=== PATIENT | male | born 1935 | race Caucasian/White ===

== ENCOUNTER 2017-02-02 14:35 | Emergency (ER) | payer OTHER, MEDICARE ==
[~2017-02-02] VITALS: Ht 182.9 cm; Wt 127.0 kg
[~2017-02-02 14:35] MED LIST: ACTOS 45 MG45 M1; ASPIRIN325 PO; CENTRUM SILVER1 EAC4 PO; COLACE100 MG PO; CORDARONE200 MG PO; COREG3.125 MG PO; CORLANOR5 MG PO; FLOMAX0.4 MG PO; GLUCOPHAGE500 MG PO; GLUCOTROL10 MG PO; JANUMET 50-5001 EACH PO; K-DUR 20 MEQ T20 MEQ PO; KEFLEX250 MG PO; LEVAQUIN 500 M500 M2 PO; LEVEMIR SUBQ; LISINOPRIL2.5 MG PO; LISINOPRIL20 MG PO; MIRALAX255 GM PO; NORCO 5-325 TA1 EACH PO; NOVOLOG100 UNIT/1 SUBQ; PLAVIX 75 MG TA75 M1 PO; SPIRONOLACTONE25 MG PO; TORSEMIDE20 MG PO; VITAMIN D1000 UNI1 PO; ZOCOR40 MG PO; ZOFRAN4 MG PO
== END 2017-02-02 19:16 | disposition home or self-care (01) ==
LOC: ER 14:35
DX: S01.01XA Laceration without foreign body of scalp, initial encounter (principal); Y99.8 Other external cause status; E11.9 Type 2 diabetes mellitus without complications; I10 Essential (primary) hypertension; I25.2 Old myocardial infarction; I48.91 Unspecified atrial fibrillation; S51.011A Laceration without foreign body of right elbow, initial encounter; W18.39XA Other fall on same level, initial encounter; Y93.89 Activity, other specified; Y92.59 Other trade areas as the place of occurrence of the external cause

== ENCOUNTER → 2017-12-30 | Outpatient (CLI) | payer OTHER, MEDICARE ==
[~2017-12-30] VITALS: Ht 152.4 cm; Wt 124.9 kg
[~2017-12-30] MED LIST changes: +COREG25 MG PO
--- NOTE | ~2017-12-30 | HPC ---
[facility] [place] [address] PAIN MANAGEMENT CONSULTATION Name: Demetrice CONTRERAS JR Room #: REG [facility]#: [id number] Admission: 12/30/17 Attend Phys: Seun Bautista DO Discharge: Date of : 33 Report #: [id number] THIS REPORT FOR: //name// CC: Matthias Bautista DATE OF SERVICE: 12/30/2017 HISTORY OF PRESENT ILLNESS: The patient is a pleasant 82-year-old gentleman, actually seen 9 years ago by myself for lumbar radicular symptoms, did well with epidural injection, was lost to follow up. He returns to [facility] Today having been referred by Dr. Link Cabrera for assistance with management of right knee pain. Dr. Cabrera has done what sounds like steroid injections in the right knee with nominal efficacy. The patient notes he has had chronic right knee pain since at least the year 1999. States pain is exacerbated with weightbearing. He started using a walker the past few weeks (he prior used a cane) notes that this helps a little by "taking some weight off the knee." He still rates his pain an 8 on a VAS. He notes the pain is aching, throbbing and periodic, again exacerbated with walking and weightbearing, relieved when he is stationary. REVIEW OF SYSTEMS: Complete review of systems is attached to chart and gone over with the patient. He is , does not smoke or drink alcohol to excess. History of insulin-dependent diabetes, unsure of his hemoglobin A1c, but notes his blood sugars run in the 100-130 range. Spironolactone and carvedilol for hypertension. Coronary artery disease, status post endovascular stents, the last one being in 2013. He does have a pacemaker defibrillator implanted. He is currently on torsemide, amlodipine and Plavix. Benign prostatic hypertrophy treated with tamsulosin. He has been retired for 15+ years. Pain impact score is 42/70. The patient recently relocated from his lifetime home to a [facility] facility. Sadly he had to get rid of his 6-year-old [place] dog, which was his constant registered nurses. PHYSICAL EXAMINATION: Reveals a 6 feet tall, 270-pound gentleman, BMI is quite elevated at 53.8 kg/m2. Significant osteoarthritis in hands and knees, right knee most problematic. Blood pressure 109/53, pulse 63, respirations are 22. Subjective pain score is 8 on a VAS. Cranial nerves 2-12 are grossly intact. Pupils equal and react to light and accommodation. Extraocular muscles are intact. Does have a little lateral gaze. No nystagmus. Thyroid is unremarkable. Upper extremity strength is preserved. Heart is regular rhythmical without murmur. Lungs: Clear to auscultation. Abdomen shows a [facility] [address] [place] [address] PAIN MANAGEMENT CONSULTATION Name: Demetrice CONTRERAS JR [id number] Admission: 12/30/17 Attend Phys: Seun Bautista DO Discharge: Date of : 33 Report #: [id number] markedly endomorphic build. Rises from chair using armrest, modestly antalgic gait. Inspection of the right knee shows medial and lateral collateral as well as the anterior and posterior cruciate ligaments are intact. There is no appreciable ballotable edema at this time, though patient notes his knee does swell often. Skin: Integument is generally intact. DIAGNOSTIC STUDIES: There are no recent diagnostic studies available for evaluation at this time. ASSESSMENT: Degenerative joint disease, right knee (osteoarthritis with multiple osteoarthritic complaints including hands, shoulders, and hips. Comorbidity includes insulin-dependent diabetes, coronary artery disease, congestive failure and ejection fraction in the mid 30s. RECOMMENDATION: Long discussion with patient today about therapeutic options. It sounds like he has had steroid injections, but has not had synthetic disk (hylan G-F 20) injection. We will trial at least 2 Synvisc injections the right knee. If this does not afford adequate relief, we will move forward with genicular nerve blocks (superior medial and lateral and inferior medial) x 3. If this affords transient relief, I can consider moving forward with radiofrequency neurolysis of same. Typically, this will provide anywhere from 5-15 months relief. Thank you for allowing me to participate in the patient's care. We will plan on moving forward with Synvisc injection next week. 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 <ELECTRONICALLY SIGNED> By: Seun Bautista DO 01/03/18 0715 1240 0101 Seun Bautista DO /nt
[2017-12-30 11:01] VITALS: BP 109/53
== END ==
LOC: PAIN 12-17 14:18 → EDBD 06:50 → PAIN 10:53
DX: M17.11 Unilateral primary osteoarthritis, right knee (principal); M71.461 Calcium deposit in bursa, right knee; M19.042 Primary osteoarthritis, left hand; M19.041 Primary osteoarthritis, right hand; M19.012 Primary osteoarthritis, left shoulder; M19.011 Primary osteoarthritis, right shoulder; M16.0 Bilateral primary osteoarthritis of hip; E11.9 Type 2 diabetes mellitus without complications; I25.10 Atherosclerotic heart disease of native coronary artery without angina pectoris; I50.9 Heart failure, unspecified

== ENCOUNTER → 2018-01-21 | Outpatient (CLI) | payer OTHER, MEDICARE ==
[~2018-01-21] VITALS: Ht 182.9 cm; Wt 126.3 kg
--- NOTE | ~2018-01-21 | HPC ---
[facility] [place] [address] PAIN MANAGEMENT CONSULTATION Name: Demetrice CONTRERAS JR Room #: REG [facility]#: [id number] Admission: 01/21/18 Attend Phys: Seun Bautista DO Discharge: Date of : 33 Report #: [id number] THIS REPORT FOR: //name// CC: Link Bautista DATE OF SERVICE: 01/21/2018 PROCEDURE: Right knee injection under fluoroscopy. Right knee Synvisc injection #1. INDICATION: Symptomatic DJD, right knee; osteoarthritis. Last seen in the pain clinic 12/30/2017. We sought authorization for this procedure. The patient presents to pain clinic today for right knee Synvisc injection #1. PROCEDURE NOTE: After written informed consent was obtained, the patient was taken to the fluoroscopy suite, placed in supine position with appropriate bolstering to the right knee. Wide surgical prep and drape was accomplished. Skin wheal with Xylocaine was raised. A 22-gauge stylet needle was placed from superior medial aspect in an inferior lateral trajectory under the patella. Negative aspiration was accomplished. AP and lateral projections showed good needle placement in the knee joint. Negative aspiration was accomplished. A 2 mL of hyaline G-F 20 (Synvisc) was injected. Needle was removed, area was cleansed, Band-Aids applied. The patient told to observe the area for infection and keep ice on it today. Follow up in next week for injection #2. <ELECTRONICALLY SIGNED> By: Seun Bautista DO 01/24/18 0747 1555 1753 Seun Bautista DO /nt
[2018-01-21 14:06] VITALS: BP 106/42
== END ==
LOC: PAIN 01-17 10:11
DX: M17.11 Unilateral primary osteoarthritis, right knee (principal)

== ENCOUNTER → 2018-01-28 | Outpatient (CLI) | payer OTHER, MEDICARE ==
[~2018-01-28] VITALS: Ht 182.9 cm; Wt 122.5 kg
--- NOTE | ~2018-01-28 | HPC ---
[facility] [place] [facility] [place] [address] PAIN MANAGEMENT CONSULTATION Name: Demetrice CONTRERAS JR Room #: REG [facility].#: [id number] Admission: 01/28/18 Attend Phys: Seun Bautista DO Discharge: Date of : 33 Report #: [id number] THIS REPORT FOR: //name// CC: Link Bautista PROCEDURE NOTE: Right knee joint injection under fluoroscopy. INDICATION: Symptomatic osteoarthritis, bilateral knees, right greater than left. This gentleman has had one Synvisc injection on 01/21/2018 in the right knee. Notes some incremental improvement in baseline pain. He wished to proceed with injection #2 today. ASSESSMENT: DJD, right knee. PROCEDURE: Right knee joint injection under fluoroscopy, Synvisc #2 (hyaline G-F 20). PROCEDURE NOTE: After written informed consent was obtained, the patient was taken to the fluoroscopy suite, placed in the supine position with a bolster under the knee. Wide surgical prep and drape was accomplished. Skin wheal with Xylocaine was raised. A 22-gauge stylet needle was placed from a superior medial entry point and placed in the inferior lateral trajectory under the patella. AP and lateral projections showed good needle placement. Negative aspiration was accomplished. A 2 mL of hyaline G-F 20 was injected. Needle was removed. The area was cleansed and Band-Aid was applied. The patient was told to watch the area for infection. Follow up in 2 weeks to repeat injection. This will be #3. If he does not get adequate relief, we can consider genicular nerve blocks. Fluoroscopy time was under 15 seconds. <ELECTRONICALLY SIGNED> By: Seun Bautista DO 01/31/18 0925 1521 00 Seun Bautista DO /nt
[2018-01-28 13:52] VITALS: BP 122/64
== END | disposition home or self-care (01) ==
LOC: PAIN 07:03
DX: M17.11 Unilateral primary osteoarthritis, right knee (principal); M17.12 Unilateral primary osteoarthritis, left knee

== ENCOUNTER → 2018-02-10 | Outpatient (CLI) | payer OTHER, MEDICARE ==
[~2018-02-10] VITALS: Ht 182.9 cm; Wt 122.8 kg
--- NOTE | ~2018-02-10 | HPC ---
[facility] [place] [address] PAIN MANAGEMENT CONSULTATION Name: Demetrice CONTRERAS JR Room #: REG [facility]#: [id number] Admission: 02/10/18 Attend Phys: Seun Bautista DO Discharge: Date of : 33 Report #: [id number] THIS REPORT FOR: //name// CC: Link Bautista PROCEDURE: Right knee joint injection under fluoroscopy. INDICATION: Symptomatic DJD, status post 2 Synvisc (hylan G-F 20) injection with some incremental improvement of baseline pain. The patient presents to pain clinic today, wishes to repeat injection. Notes pain is an 8-9 on a VAS. We did talk briefly today about followup in 4 weeks; if symptoms are not significantly improved, we can consider a genicular nerve block times 3 (superior medial, superior lateral, and inferior medial). ASSESSMENT: Degenerative joint disease, right knee. PROCEDURE: Right knee joint injection under fluoroscopy, Synvisc #3. PROCEDURE NOTE: After written informed consent was obtained, the patient was placed in the supine position with a bolster under the right knee after wide surgical prep and drape, skin wheal with Xylocaine was raised. A 22-gauge stylet needle was placed from superior medial entry point and then inferior lateral trajectory under the patella. AP and lateral projections showed good needle placement under the patella and within the joint. Negative aspiration, easily injected 2 mL of Synvisc into the knee, stylet was replaced, needle was removed, the area was cleansed, Band-Aids applied. The patient was told to observe the area for any signs of infection. Follow up in 4 weeks for reevaluation. <ELECTRONICALLY SIGNED> By: Seun Bautista DO 02/16/18 0744 1515 1626 Seun Batuista DO /nt
[2018-02-10 12:33] VITALS: BP 98/51
== END | disposition home or self-care (01) ==
LOC: PAIN 07:02
DX: M17.11 Unilateral primary osteoarthritis, right knee (principal)

== ENCOUNTER → 2018-03-07 | Outpatient (CLI) | payer OTHER, MEDICARE ==
[~2018-03-07] VITALS: Ht 182.9 cm; Wt 123.4 kg
--- NOTE | ~2018-03-07 | HPC ---
[facility] [place] [address] PAIN MANAGEMENT CONSULTATION Name: Demetrice CONTRERAS JR Room #: REG [facility]#: [id number] Admission: 03/07/18 Attend Phys: Seun Bautista DO Discharge: Date of : 33 Report #: [id number] THIS REPORT FOR: //name// CC: Link Bautista The patient is a very pleasant 83-year-old gentleman, being treated for osteoarthritis, bilateral knees, right greater than left. Multiple comorbidities including non-insulin dependent diabetes, coronary artery disease. We did a series of 3 Synvisc injections with only nominal efficacy. Notes pain in his knee is better in the morning, but still has pain that interferes with function. He is not a surgical candidate, has significant osteoarthritis in the right knee. I told him that if the Synvisc injections did not afford adequate relief, we will consider genicular nerve block. Today, we will do the diagnostic genicular nerve block. If this affords good relief, we will move forward with plans for RFL of same. ASSESSMENT: Symptomatic osteoarthritis, right knee; chronic pain, right knee. PROCEDURE: Genicular nerve block with fluoroscopy right side, 3 nerves (superior medial genicular, superior lateral genicular, inferior medial genicular). DESCRIPTION OF PROCEDURE: After informed consent was obtained, the patient was taken to fluoroscopy suite, placed in supine position. Skin overlying the knee was cleansed with ChloraPrep. Skin wheal with Xylocaine was raised. Three 22-gauge stylet needles were placed to contact the metaphysis of the distal femur, left and right and the metaphysis of the proximal tibia medial aspect. AP and lateral projections showed good needle placement at mid shaft. A 1 mL of a 50:50 mix of 0.5% preservative-free bupivacaine with 1.5% preservative-free Xylocaine with 1:200,000 epi was injected. All three needles removed. The patient was allowed to ambulate to recovery room. Fluoroscopy time was 10 seconds. The patient was monitored for an appropriate period of time, discharged in good and stable condition. Please do note the patient was pain free, pain was absent on discharge. He had been scoring his pain a 3-4 on admission. We will plan on moving forward with radiofrequency neurolysis of the genicular nerves x 3, right knee at next visit. <ELECTRONICALLY SIGNED> By: Seun Bautista DO 03/09/18 0753 1137 1818 eSun Bautista DO /nt
[2018-03-07 09:39] VITALS: BP 110/67
== END | disposition home or self-care (01) ==
LOC: PAIN 07:14
DX: M17.11 Unilateral primary osteoarthritis, right knee (principal); G89.29 Other chronic pain; E11.9 Type 2 diabetes mellitus without complications; I25.10 Atherosclerotic heart disease of native coronary artery without angina pectoris

== ENCOUNTER → 2018-03-21 | Outpatient (CLI) | payer OTHER, MEDICARE ==
[~2018-03-21] VITALS: Ht 182.9 cm; Wt 123.7 kg
--- NOTE | ~2018-03-21 | HPC ---
[facility] [place] [address] PAIN MANAGEMENT CONSULTATION Name: Demetrice CONTRERAS JR Room #: REG [facility]#: [id number] Admission: 03/21/18 Attend Phys: Seun Bautista DO Discharge: Date of : 33 Report #: [id number] THIS REPORT FOR: //name// CC: Link Bautista The patient is a pleasant 83-year-old gentleman, being treated for significant osteoarthritis, bilateral knees, right greater than left; history of coronary artery disease and chronic pain syndrome, requiring complex medication management. Last visit, we had progressed to do a right knee genicular nerve block (superior lateral, inferior medial and superior medial genicular nerve). The patient noted dramatic improvement of baseline pain, in fact noted pain was absent on discharge. He returns to pain clinic today, the patient noted pain improvement lasted several hours. We elected to proceed with genicular nerve block neurolysis today. The patient understands risks that include lack of efficacy and increased pain. The patient has prior failed Synvisc injection. He is not a surgical candidate for total knee arthroplasty due to significant comorbidity. PHYSICAL EXAMINATION: Unchanged, 83-year-old gentleman, BMI is elevated at 37 kg/m2. Blood pressure 117/64, pulse wnl, respirations are 16. He has diffuse lower extremity edema. Antalgic gait. Tender in the right knee. No ballotable edema. ASSESSMENT: Osteoarthritis, right knee. PROCEDURE: Radiofrequency neurolysis genicular nerve, superior medial genicular nerve, superior lateral genicular nerve, and inferior medial genicular nerve with fluoroscopy. PROCEDURE NOTE: After written informed consent was obtained, the patient was taken to the fluoroscopy suite and placed in supine position with a bolster under the right knee. After appropriate wide surgical prep and drape, skin wheals with Xylocaine were raised. Three 10 mm RF cannula were placed to contact the distal diaphysis of the femur both medial and lateral and proximal diaphysis of the tibia medial aspect. AP and lateral projections showed good needle placements at mid shaft. Initial impedance and sensory testing was accomplished. 1 mL of 1% preservative-free Xylocaine was injected through each needle. All three needles were heated to 80 degrees centigrade for 90 seconds. A total of 13 mg of triamcinolone plus 1 mL of 0.5% preservative-free bupivacaine injected through each needle. All three needles were removed, the area was cleansed, and Band-Aid applied. The patient was monitored for an appropriate period of time, discharged in good and stable condition, noting incremental improvement of baseline pain, in fact noting his knee felt "numb." [address] [address] PAIN MANAGEMENT CONSULTATION Name: Demetrice CONTRERAS JR Room #: REG [facility] [place]#: [id number] Admission: 03/21/18 Attend Phys: Seun Bautista DO Discharge: Date of : 33 Report #: [id number] Fluoroscopy time was 12 seconds. The patient was instructed not to follow up with physical therapy for 7 days and follow up with the pain clinic only if needed. <ELECTRONICALLY SIGNED> By: Seun Bautista DO 03/24/18 0927 1159 1505 Seun Bautista DO /nt
[2018-03-21 10:11] VITALS: BP 117/64
== END | disposition home or self-care (01) ==
LOC: PAIN 06:47
DX: M17.11 Unilateral primary osteoarthritis, right knee (principal); G89.4 Chronic pain syndrome; E11.9 Type 2 diabetes mellitus without complications; I25.10 Atherosclerotic heart disease of native coronary artery without angina pectoris; Z79.891 Long term (current) use of opiate analgesic; Z98.890 Other specified postprocedural states; Z79.82 Long term (current) use of aspirin; Z79.899 Other long term (current) drug therapy; Z79.4 Long term (current) use of insulin

== ENCOUNTER 2019-02-07 13:38 | Inpatient (IN) | payer OTHER, MEDICARE ==
[~2019-02-07] VITALS: Ht 182.9 cm; Wt 122.5 kg
[2019-02-07 13:39] VITALS: BP 92/46
[2019-02-07 14:15] LABS: HEMATOCRIT 32.4 % (42.0-52.0); MCH 37.7 pg (26.0-34.0); MCHC 33.9 g/dL (28.0-37.0); MCV 111.1 fL (80.0-100.0); RBC 2.91 mil/uL (4.50-6.00); RDW 24.9 % (10.5-14.5); WBC 5.1 thou/uL (4.0-11.0)
[2019-02-07 14:20] LABS: CALCIUM 8.7 mg/dL (8.5-10.1); CREATININE 1.4 mg/dL (0.7-1.3); POTASSIUM 4.9 mmol/L (3.5-5.1)
[2019-02-07 14:28] LABS: ALBUMIN 3.7 g/dL (3.4-5.0); TOTAL BILIRUBIN 0.6 mg/dL (<0.1-1.0); TOTAL PROTEIN 7.5 g/dL (6.4-8.2); TROPONIN-I 0.19 ng/mL (<0.06)
[2019-02-07] MEDS ORDERED: COMBIGAN EYE DR10 ML OPHTHALMIC (15:31)
[2019-02-07] MEDS ORDERED: COREG6.25 MG PO (15:32)
[2019-02-07 16:13] VITALS: BP 126/52
[2019-02-07 16:18] LABS: CHOLESTEROL 150 mg/dL (<200); HDL CHOLESTEROL 63 mg/dL (>40); LDL CHOLESTEROL 81 mg/dL (<100); TC:HDL 2.4 Ratio (Not establshd); TRIGLYCERIDE 32 mg/dL (<150); VLDL 6 mg/dL (<40)
[2019-02-07 16:34] VITALS: BP 100/59
--- NOTE | 2019-02-07 17:29 | EKG ---
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: BELA : 1935 Requested By: Jade Barbosa Order Number: [id number] MD: Matthias Mancuso Measurements Intervals [place] Rate: 73 P: 46 SC: 193 QRS: -101 QRSD: 175 T: 77 QT: 469 QTc: 517 Interpretive Statements Sinus rhythm RBBB and LAFB Anterior infarct, age indeterminate Compared to ECG 08/15/2016 23:34:10 No significant change was found Electronically Signed On 02-07-2019 17:28:57 CDT by Matthias Mancuso [email or web address] ��������������������������������������������� <ELECTRONICALLY SIGNED> ���������������������������������������� By: Matthias aMncuso MD, [facility] ��������������������������������������������� 02/07/19 1728 1417 1417 Matthias Mancuso MD, [facility] /EPI
--- NOTE | 2019-02-07 18:25 | NUR ---
PT ARRIVED TO UNIT AT APPROX 1630 BY ER STAFF ACCOMPANIED BY SON WITH ALL BELONINGS. PT ALERT AND ORIENTED, UP SBA, VSS, NO S/SX OF CARDIAC OR RESP DISTRESS NOTED. O2 SATS WNL ON ROOM AIR. PACED ON TELE, DENIES CHEST PAIN. TELE PUT ON, STRIP PRINTED AND DOCUMENTED. WILL ACKNOWLEDGE AND IMPLEMENT ORDERS. DENIES CONCERNS AT THIS TIME. WILL CONTINUE TO MONITOR AND FOLLOW POC.
--- NOTE | 2019-02-07 18:35 | NUR ---
PT CONTINUES TO BE ALERT AND ORIENTED, SONS AT BEDSIDE, VSS, PT UP SBA, ABLE TO MOVE SELF IN BED. DENIES CONCERNS AT THIS TIME. NO C/O PAIN, DENIES CHEST PAIN. WILL CONTINUE TO MONITOR AND FOLLOW POC.
[2019-02-07 19:41] VITALS: BP 97/51
[2019-02-07 23:13] VITALS: BP 97/51
--- NOTE | 2019-02-08 03:42 | NUR ---
ASSUMED PT CARE AT 1900. PT A/OX4, VITAL SIGNS STABLE, ASSESSMENT CHARTED. NO COMPLAINTS OF PAIN/CHEST PAIN. PT DID NOT TAKE FLOMAX. PT REFUSED AND STATED HE PREFERS TO TAKE IT IN THE MORNINGS THAT IS HOW HE TAKES IT AT THE FACILITY AND WILL RATHER NOT DEVIATE TOO MUCH FROM HIS ROUTINE. PT ALSO STATED THAT HE DOES NOT TAKE 45UNITS OF LONG ACTING INSULIN AT NIGHT. PT REQUESTED I GIVE HIM ONLY 10UNITS OF THE LONG ACTING INSULIN. 10UNITS GIVEN AND MED LIST UPDATED. PT OTHERWISE RESTED WELL THROUGH THE NIGHT. PROGRESSING TOWARDS PLAN OF CARE. WILL CONTINUE TO MONITOR.
[2019-02-08 04:41] VITALS: BP 91/51
[2019-02-08 08:30] VITALS: BP 108/56
--- NOTE | 2019-02-08 10:04 | NUR ---
Received consult for malnutrition. Admitted with syncope. Tolerates meals, no wt loss identified, BMI 36 obese. BG well controlled. Low nutrition risk and no malnutrition is identified
[2019-02-08 11:56] VITALS: BP 119/56
[2019-02-08] MEDS ORDERED: COREG3.125 MG PO (14:13)
[2019-02-08] MEDS ORDERED: K-DUR 20 MEQ T20 MEQ PO (14:14)
[2019-02-08] MEDS ORDERED: TORSEMIDE20 MG PO (14:15)
--- NOTE | 2019-02-08 14:41 | NUR ---
PT ALERT AND ORIENTED TIMES FOUR. VSS, 94%RA. PT DENIES PAIN/SOA. PT UP TO RESTROOM WITH STANDBY ASSIST. PT TOLERATES MEDS AND MEALS. PT EXTREMELY DISCHARGED FOCUSED. SON AT BEDSIDE THIS AFTERNOON. PT PROGRESSING TOWRADS POC GOALS.
--- NOTE | 2019-02-08 14:45 | NUR ---
Met with patient and son at bedside. Per phys if ok with cardiology patient may dc today. RN reports cardiology stated could dc today. Updated patient who is so happy to dc home todayl. Patient and son report patient lives in independent apt at [facility]. Son reports no change in status since dc. Plan home independently at dc. Son to transport home, updated RN
[2019-02-08 14:48] VITALS: BP 119/56
--- NOTE | 2019-02-13 12:39 | HC ---
[facility] [place] [address] CONSULTATION Name: Demetrice CONTRERAS JR Room #[facility] ..#: [id number] Admission: 02/07/19 ������������������ Attend Phys: Moni Snyder Discharge: 02/08/19 ������������������ Date of : 33 Report #: [id number] THIS REPORT FOR: //name// CC: Moni Snyder Link Box DATE OF SERVICE: 02/08/2019 REASON FOR CONSULTATION: Syncope. HISTORY OF PRESENT ILLNESS: The patient is an 84-year-old gentleman who has a history of an extensive anterior myocardial infarction in 2013 with late presentation. His ejection fraction at that time was in the 10-15% range. He underwent stenting of the LAD with a 3.0 x 28 mm Vision bare metal stent. His right coronary and circumflex arteries exhibited minimal plaquing. Followup ejection fraction was in the 25% range with moderately severe aortic stenosis. He has a history of paroxysmal atrial fibrillation, maintained in sinus rhythm on amiodarone as well as a remote [employer] ICD implantation. The patient has been doing reasonably well up until recently. Yesterday after lunch, he stood up and became lightheaded and dizzy, sat down on his wheelchair and continued to be lightheaded. He has identified this symptom in the past 24 hours, is related to hypoglycemia. He ate a candy bar and drank some water without improvement. He subsequently became nauseated, vomited and transiently passed out. He felt better when coming. He denies chest pain, pressure or ischemic type symptoms. He denies changes in his chronic heart failure symptoms with mild lower extremity edema. No orthopnea or paroxysmal nocturnal dyspnea. He has noticed lower than usual blood pressure readings and self-medicates and adjusts medicines as he thinks he should. This includes withholding carvedilol and lisinopril from [id number]. He has a history of symptomatic hypotension with JENNIFFER and ARB therapy, although at some point last year, very low dose lisinopril was added back. ALLERGIES: There are no known drug allergies. MEDICATIONS: Include Flomax 0.4 mg daily, Plavix 75 mg daily, insulin, potassium 20 mEq twice daily, torsemide 40 mg twice daily, carvedilol 6.25 mg, aspirin, amiodarone 200 mg daily, Aldactone 25 mg daily and a multivitamin. PAST MEDICAL HISTORY: Medical records have been reviewed and include a history of remote anterolateral infarct with late presentation, congestive heart failure, [employer] ICD placement, diabetes. SOCIAL HISTORY: He is a nonsmoker, lives in an assisted living environment. FAMILY HISTORY: Unremarkable for premature coronary artery disease. Father had a stroke. [facility] [address] [place] [address] CONSULTATION Name: Demetrice CONTRERAS JR Room #: [facility] M.R.[facility] [id number] Admission: 02/07/19 ������������������ Attend Phys: Moni Snyder Discharge: 02/08/19 ������������������ Date of : 33 Report #: [id number] REVIEW OF SYSTEMS: All systems negative except as that noted above. PHYSICAL EXAMINATION: GENERAL: He is a pleasant gentleman, is alert, in no distress. VITAL SIGNS: Blood pressure is 91/50, heart rate of 70 and regular. He is afebrile. He is 6 feet tall, 270 pounds. HEENT: There are neither xanthelasma, subcutaneous xanthomata, oral mucosal or digital cyanosis or kyphoscoliosis present. CHEST: Clear to auscultation and percussion. CARDIOVASCULAR: Regular rate and rhythm with normal S1, S2. No murmurs or rubs. ABDOMEN: Soft and nontender. EXTREMITIES: Without cyanosis, clubbing or edema. Radial pulses are 2+. NEUROLOGIC: He is alert with a nonfocal exam. Interrogation of his [employer] ICD demonstrates a normally functioning device. No rhythm abnormalities identified. LABORATORY DATA: Potassium 4.9, creatinine 1.4. Troponin 0.36. Interestingly, he has never had a normal troponin, never dating back several years. White count 5.1, hemoglobin 11, hematocrit 32, platelet count 228. Head CT demonstrates atrophy. Chest x-ray normal. IMPRESSION: 1. Near syncope related to orthostatic hypotension and medications. 2. Chronic systolic heart failure. 3. Severe ischemic cardiomyopathy. 4. Non-rheumatic calcific aortic valve stenosis. 5. Paroxysmal atrial fibrillation. 6. Dyslipidemia. 7. Prior [employer] implantable cardioverter defibrillator placement. RECOMMENDATIONS: 1. I suspect his dizziness is related to orthostatic hypotension, in part related to medications. Discontinue JENNIFFER and ARB therapy. 2. Continued low dose amiodarone. Screening blood work including thyroid function studies ordered. 3. Small troponin rise is not unexpected in the setting of hypotension and coronary artery disease as detailed above. I have discussed these issues with the patient and his family. [facility] [address] [place] [address] CONSULTATION Name: Demetrice CONTRERAS JR Room #: 212[facility] M.R.[facility] [id number] Admission: 02/07/19 ������������������ Attend Phys: Moni Snyder Discharge: 02/08/19 ������������������ Date of : 33 Report #: [id number] Thank you for asking me to participate in his care. ��������������������������������������������� <ELECTRONICALLY SIGNED> ���������������������������������������� By: Matthias Mancuso MD, FACC ��������������������������������������������� 02/13/19 1239 0741 2200 Matthias Mancuso MD, FACC /nt
== END 2019-02-08 15:45 | disposition home or self-care (01) | DRG 312 ==
LOC: ER 13:38 → EROBS 16:05 → 2N 16:05 → ENTRNSPT 02-08 15:11 → EDTRNSPTSTS 02-08 15:14 → 2N 02-08 15:45
PROVIDERS: Student in an Organized Health Care Education/Training Program; ADMIT Hospitalist
DX: I95.2 Hypotension due to drugs (principal); I13.0 Hypertensive heart and chronic kidney disease with heart failure and stage 1 through stage 4 chronic kidney disease, or unspecified chronic kidney disease; I50.22 Chronic systolic (congestive) heart failure; E86.9 Volume depletion, unspecified; R11.10 Vomiting, unspecified; N18.3 Chronic kidney disease, stage 3 (moderate); N40.0 Benign prostatic hyperplasia without lower urinary tract symptoms; I25.5 Ischemic cardiomyopathy; T50.995A Adverse effect of other drugs, medicaments and biological substances, initial encounter; I35.0 Nonrheumatic aortic (valve) stenosis; I48.0 Paroxysmal atrial fibrillation; E78.5 Hyperlipidemia, unspecified; Z95.810 Presence of automatic (implantable) cardiac defibrillator; Z79.82 Long term (current) use of aspirin; I25.2 Old myocardial infarction; Z95.5 Presence of coronary angioplasty implant and graft; Z79.899 Other long term (current) drug therapy; Y92.89 Other specified places as the place of occurrence of the external cause
CPT/HCPCS: 10081

== ENCOUNTER → 2019-07-20 | Outpatient (CLI) | payer OTHER, MEDICARE ==
[~2019-07-20] MED LIST changes: +COMBIGAN EYE DR10 ML OPHTHALMIC; +COREG6.25 MG PO
== END ==
LOC: HYPER 06:55
DX: I89.0 Lymphedema, not elsewhere classified (principal); I87.323 Chronic venous hypertension (idiopathic) with inflammation of bilateral lower extremity; E11.40 Type 2 diabetes mellitus with diabetic neuropathy, unspecified; I50.22 Chronic systolic (congestive) heart failure; I25.5 Ischemic cardiomyopathy; I48.0 Paroxysmal atrial fibrillation; I25.10 Atherosclerotic heart disease of native coronary artery without angina pectoris; E66.9 Obesity, unspecified; M19.90 Unspecified osteoarthritis, unspecified site; R60.1 Generalized edema; Z95.810 Presence of automatic (implantable) cardiac defibrillator

== ENCOUNTER 2019-07-26 06:55 | Inpatient (IN) | payer OTHER, MEDICARE | END 2019-07-26 17:33 | disposition home or self-care (01) | DRG 293 | LOC: HYPER 06:55 → 2N 15:14 | PROVIDERS: ADMIT Hospitalist | DX: I50.23 Acute on chronic systolic (congestive) heart failure (principal); I25.10 Atherosclerotic heart disease of native coronary artery without angina pectoris; I48.0 Paroxysmal atrial fibrillation; E11.9 Type 2 diabetes mellitus without complications; I25.5 Ischemic cardiomyopathy; E78.5 Hyperlipidemia, unspecified; N40.0 Benign prostatic hyperplasia without lower urinary tract symptoms; I25.2 Old myocardial infarction; Z95.5 Presence of coronary angioplasty implant and graft; Z95.810 Presence of automatic (implantable) cardiac defibrillator; Z79.02 Long term (current) use of antithrombotics/antiplatelets; Z79.4 Long term (current) use of insulin; Z79.82 Long term (current) use of aspirin; Z79.899 Other long term (current) drug therapy; Z82.49 Family history of ischemic heart disease and other diseases of the circulatory system | CPT/HCPCS: 10797 ==

== ENCOUNTER 2019-07-26 17:47 | Inpatient (IN) | payer OTHER, MEDICARE ==
[~2019-07-26] VITALS: Ht 182.9 cm; Wt 117.0 kg
[2019-07-26 18:35] VITALS: BP 134/76
--- NOTE | 2019-07-26 19:35 | NUR ---
PT DIRECT ADMIT ARRIVED TO UNIT AT APPROX 1830. PHYSICIAN NOTIFIED, ORDERS RECEIVED. NURSE DEMETRIO SHAH TO PASS REPORT ON TO [facility] NURSE.
[2019-07-26 21:23] LABS: HEMATOCRIT 34.6 % (42.0-52.0); HEMOGLOBIN 11.7 gm/dL (14.0-18.0); MCH 38.6 pg (26.0-34.0); MCHC 33.8 g/dL (28.0-37.0); MCV 114.1 fL (80.0-100.0); RBC 3.03 mil/uL (4.50-6.00); RDW 27.4 % (10.5-14.5); WBC 3.5 thou/uL (4.0-11.0)
[2019-07-26 21:36] LABS: ALBUMIN 3.3 g/dL (3.4-5.0); CALCIUM 8.8 mg/dL (8.5-10.1); CREATININE 1.5 mg/dL (0.7-1.3); MAGNESIUM 2.1 mg/dL (1.8-2.4); POTASSIUM 4.4 mmol/L (3.5-5.1); TOTAL BILIRUBIN 0.9 mg/dL (<0.1-1.0)
--- NOTE | 2019-07-27 02:54 | NUR ---
ASSESSMENT: PT ARRIVED TO THE UNIT VIA CART TO ROOM 219, AT APPROXIMATELY 1930 COMING FORM ED. PT REMAIN ALERT AND ORIENT TIMES FOUR. VSS, AFEBRILE. PT IS SCHEDULED FOR AN ECHO IN THE AM AND A CXR WELL. PT'S LUNG SOUNDS WERE CLEAR IN ALL MENSAH. VARGAS PLACED WITH 400 ML OF YELLOW URINE OUTPUT. LATER THE URINE WAS A SLIGHT BLOOD TINGED R/T THE TRAUMA OF INSERTING THE CATHETER. PT DENIES PAIN. MIKI LE CELLULITIS NOTED. PT REQUESTED THAT HIS JENNIFFER WRAPS REMAIN OFF AFTER A FULL ASSESSMENT OF BOTH LEGS/FEET. IT IS NOTED THAT HIS LEGS WERE +3 EDEMATOUS, RED WITH SKIN MOSTLY INTACT. ON HIS LEFT MID-TOE, A SMALL ULCER WAS NOTED. IT HAD SCANTS AMTS OF OOZING. PIC IN CHART. PT IS ON A 1500 FR. LASIX TO RESUME TOMORROW SINCE PT HAS TAKEN A HOME DOSE FOR THIS SHIFT. UA WAS SENT. PER MONIOR, PT IS SR/V-PACED. SHARON HODGES WAX POURER WAS AT THE BEDSIDE EARLIER DURING THE SHIFT, ORDERS ACKNOWLEDGED. IV INITIATED IN RIGHT WRIST, 20G. PT AMBULATES WITH WALKER (ROLLER WALKER FROM HOME). WITH MINIMAL ASSISTANCE TO STAND. SLOW PROGRESS TOWARDS DC GOALS. WILL CONTINUE TO MONITOR.
[2019-07-27 05:25] LABS: CALCIUM 8.6 mg/dL (8.5-10.1); CREATININE 1.4 mg/dL (0.7-1.3); POTASSIUM 4.4 mmol/L (3.5-5.1)
[2019-07-27 05:34] VITALS: BP 133/65
--- NOTE | 2019-07-27 05:50 | NUR ---
ASSESSMENT: PT'S VARGAS WAS PATENT AND IS SHOWING SCANT AMTS OF BLOOD TINGED URINE. PT SEEMED TO HAVE GREAT CONCERN OF THE URINE BEING "BLOODY". PT VARGAS WAS THEN IRRIGATED. PT STATE THAT HE HAD SOME PAIN EARLIER AND POST IRRIGATION HE FELT MUCH BETTER. HGB 11.7 PRIOR TO THE VARGAS BEING INSERTED. PT'S O2 SATS WAS ONLY 88% ON RA. PLACED ON 2 LITERS OF OXYGEN, SATS INCREASED TO 94%. WILL KEEP ON FOR A WHILE FOR PT'S COMNFORT.
[2019-07-27 08:35] VITALS: BP 115/48
--- NOTE | 2019-07-27 08:37 | EKG ---
[address] [address] ELECTROCARDIOGRAM REPORT Name: Demetrice CONTRERAS JR Room #: 219-P ADM IN .R.#: [id number] Admission: 07/26/19 Attend Phys: Kiko Rocha MD Discharge: Date of : 33 Report #: [id number] THIS REPORT FOR: //name// [facility] Test Date: 2019-07-26 Test Time: 18:50:19 Pat Name: Demetrice CONTRERAS Department: Room: 219 P Gender: M Telegraph Service Clerk: Giancarlo SANTOS : 1935 Requested By: Jennifer Terrell Order Number: [id number] MD: Edmar Pandya Measurements Intervals [place] Rate: 79 P: -26 WA: 214 QRS: -75 QRSD: 158 T: 95 QT: 438 QTc: 503 Interpretive Statements Sinus rhythm Borderline prolonged WA interval Right bundle branch block Inferior infarct, old Anterior infarct, old Compared to ECG 02/07/2019 14:17:45 Left anterior fascicular block no longer present Myocardial infarct finding still present Electronically Signed On 07-27-2019 8:36:47 CDT by Edmar Pandya [email or web address] <ELECTRONICALLY SIGNED> By: Edmar Pandya MD 07/27/1938 49 49 Edmar Pandya MD /EPI
--- NOTE | 2019-07-27 08:47 | HC ---
[facility] [place] [address] CONSULTATION Name: Demetrice CONTRERAS JR Room #: 219-P ADM IN ..#: [id number] Admission: 07/26/19 Attend Phys: Kiko Rocha MD Discharge: Date of : 33 Report #: [id number] THIS REPORT FOR: //name// CC: Kiko Maza Box DATE OF SERVICE: 07/27/2019 REASON FOR CONSULTATION: Shortness of breath. HISTORY OF PRESENT ILLNESS: The patient is an 84-year-old gentleman with a history of a severe ischemic cardiomyopathy. He presented late following an anterior myocardial infarction in 2013. He underwent stenting of the LAD with a bare metal stent. The right coronary and circumflex exhibited mild plaquing, although ultimately there was a little myocardial salvage. He has had problems with recurrent heart failure, recently over the past couple of weeks, he has noticed increasing lower extremity edema and abdominal bloating. His last echocardiogram less than a year ago demonstrated an ejection fraction of 25% with a calcified and moderately severe to severely stenotic aortic valve with a peak gradient of 43 mm and a mean gradient of 27. No mitral regurgitation. He is now admitted for exacerbation and heart failure. He denies chest heaviness, pressure or ischemic type symptoms. He has had ongoing problems with low blood pressures, which have been symptomatic and necessitated discontinuation of JENNIFFER and ARB therapy. He also reports on occasion, he has had trouble emptying his bladder completely. ALLERGIES: There are no known drug allergies. MEDICATIONS: Include amiodarone 200 mg daily, aspirin, Plavix 75 mg daily, insulin 3 times a day before meals, Levemir, potassium 20 mEq twice daily, Aldactone 25 mg daily, Flomax 0.4 mg daily, torsemide 40 mg daily, carvedilol 3.125 mg twice daily. PAST MEDICAL HISTORY: Medical records have been reviewed and include a history of [employer] ICD placement, history of congestive heart failure, ischemic cardiomyopathy, chronic kidney disease. SOCIAL HISTORY: Lives at [facility]. He has never been a smoker. FAMILY HISTORY: Notable for father who had a stroke. REVIEW OF SYSTEMS: All systems negative except as that noted above. PHYSICAL EXAMINATION: GENERAL: A pleasant gentleman who is alert. He is mildly dyspneic. VITAL SIGNS: Blood pressure is 133/65, heart rate is 73 and regular. He is [facility] [address] [place] [address] CONSULTATION Name: DIANEDemetrice Room #: 219-P [facility] IN [facility].#: [id number] Admission: 07/26/19 Attend Phys: Kiko Rocha MD Discharge: Date of : 33 Report #: [id number] afebrile, 290 pounds, 6 feet tall. HEENT: There are neither xanthelasma, subcutaneous xanthomata, oral mucosal or digital cyanosis or kyphoscoliosis present. CHEST: Clear to auscultation and percussion. CARDIAC: Regular rate and rhythm with normal S1, S2. There is 2/6 systolic murmur at the base. ABDOMEN: Soft and nontender. EXTREMITIES: Reveal 3+ pitting bilateral edema. NEUROLOGIC: He is alert with a nonfocal exam. LABORATORY DATA: Sodium is 142, potassium 4.4, creatinine 1.4. ProBNP of 14,000. White count 3.5, hemoglobin 11, hematocrit 34, platelet count 199. TSH 3.9. RADIOLOGICAL DATA: Chest x-ray demonstrates cardiomegaly with right lower lobe "patchy opacity" which may represent asymmetric pulmonary edema. EKG, sinus rhythm with left anterior hemiblock, right bundle branch block, anterior infarct old. IMPRESSION: 1. Chronic systolic heart failure, ejection fraction 25%. 2. Chronic kidney disease. 3. Severe ischemic cardiomyopathy. 4. Non-rheumatic aortic stenosis, moderately severe to severe. 5. Paroxysmal atrial fibrillation. 6. Dyslipidemia. 7. History of [employer] ICD placement, normally functioning by recent interrogation. 8. Diabetes. 9. Anemia. RECOMMENDATIONS: 1. IV Lasix. 2. Echocardiogram with Doppler. 3. Hold JENNIFFER and ARB therapy due to history of severe orthostatic hypotension with these agents. 4. Dietary salt restriction discussed. 5. The patient was probably at least 25 pounds above his "dry weight." Thank you for asking me to participate in his care. <ELECTRONICALLY SIGNED> By: Matthias Mancuso MD, FACC 07/27/19 0847 0743 0820 Matthias Mancuso MD, FACC /nt
[2019-07-27 11:06] VITALS: BP 106/66
--- NOTE | 2019-07-27 12:17 | 2DMMODE ---
[facility] [address] [place] [address] 2 D/M-MODE ECHOCARDIOGRAM Name: Demetrice CONTRERAS JR Room #: 219-P [facility] IN [facility]#: [id number] Admission: 07/26/19 Attend Phys: Kiko Rocha MD Discharge: Date of : 33 Date of Service: 07/27/19 1217 Report #: [id number] THIS REPORT FOR: //name// APPROVED REPORT Study performed: 07/27/2019 09:12:07 EXAM: Comprehensive 2D, Doppler, and color-flow Echocardiogram Patient Location: In-Patient Room #: 219 Status: routine BSA: 2.49 HR: 81 bpm BP: 130/86 mmHg Rhythm: Pacemaker Other Information Study Quality: Technically Difficult Risk Factors: Cardiac Risk Factors: HTN, SOB Echo Enhancing Agent Indication: Endocardial border delineation Agent(s) / Amount(s) Used: Optison 2 cc 2D Dimensions RVDd: 50.44 mm IVSd: 14.98 (7-11mm) LVOT Diam: 22.05 (18-24mm) LVDd: 58.58 mm PWd: 8.86 (7-11mm) Ascending Ao: 41.12 (22-36mm) LVDs: 57.94 (25-40mm) Left Atrium: 41.51 (27-40mm) Aortic Root: 36.89 mm LV Single Plane 4CH: 20.71 % LV Single Plane 2CH: 9.65 % Volumes Left Atrial Volume (Systole) Single Plane 4CH: 91.56 mL Single Plane 2CH: 114.34 mL Aortic Valve AoV Peak Severino.: 3.47 m/s AO Peak Gr.: 48.24 mmHg LVOT Max P.18 mmHg AO Mean Gr.: 25.13 mmHg LVOT Mean P.06 mmHg [facility] [email or web address] [address] 2 D/M-MODE ECHOCARDIOGRAM Name: Demetrice CONTRERAS JR Room #: 219-P [facility] IN ..#: [id number] Admission: 07/26/19 Attend Phys: Kiko Rocha MD Discharge: Date of : 33 Date of Service: 07/27/19 1217 Report #: [id number] AO V2 Mean: 2.36 m/s LVOT Max V: 0.74 m/s AO V2 VTI: 80.00 cm LVOT Mean V: 0.46 m/s EMELI (VTI): 0.80 cm2 LVOT V1 VTI: 16.70 cm EMELI Vmax: 0.81 cm2 SV (LVOT): 63.75 mL Mitral Valve E/A Ratio: 1.6 MV Decel. Time: 204.89 ms MV E Max Severino.: 1.33 m/s MV A Severino.: 0.81 m/s MV PHT: 59.42 ms Pulmonary Valve PV Peak Severino.: 1.15 m/s PV Peak Gr.: 6.13 mmHg PA End Vmax: 1.54 m/s Pulmonary Vein P Vein S: 0.53 m/s P Vein A: 0.19 m/s P Vein D: 0.26 m/s P Vein A Dur.: 96.9 msec P Vein S/D Ratio: 2.04 Tricuspid Valve TR Peak Severino.: 3.16 m/s TR Peak Gr.: 39.82 mmHg Left Ventricle Left ventricle is moderately dilated. Asymetric septal hypertrophy Left ventricular ejection fraction is severely decreased. LVEF 20%. Extensive septal and anterolateral wall akinesis This study is not technically sufficient to allow evaluation of the LV diastolic function. Right Ventricle Right ventricle is at the upper limits of normal. Right ventricular systolic function is grossly normal. Atria Left atrium is mildly dilated. The interatrial septum is intact with no evidence for an atrial septal defect. Right atrium is mildly dilated. Aortic Valve No aortic regurgitation is present. Severe aortic stenosis. Calculated EMELI 0.8 cm2. Peak pressure gradient 48 mmHg and mean pressure gradient is 25 mmHg. [facility] [address] [id number] 2 D/M-MODE ECHOCARDIOGRAM Name: Demetrice CONTRERAS JR Room #: 219-P [facility] IN M.R.#: [id number] Admission: 07/26/19 Attend Phys: Kiko Rocha MD Discharge: Date of : 33 Date of Service: 07/27/19 1217 Report #: [id number] Mitral Valve Mitral valve leaflets are calcified. Moderate mitral annular calcification. Mild mitral regurgitation. Tricuspid Valve The tricuspid valve is normal in structure. Mild tricuspid regurgitation. Estimated PAP 45 mmHg. Pulmonic Valve Mild pulmonic regurgitation. Great Vessels Aortic root is mildly dilated. The ascending aorta is moderately dilated. IVC is dilated and collapses <50% with inspiration. Pericardium There is no pericardial effusion. Critical Notification Critical Value: No <Conclusion> Left ventricular ejection fraction is severely decreased. LVEF 20%. Extensive septal and anterolateral wall akinesis Both atria are mildly dilated. Severe aortic stenosis. Calculated EMELI 0.8 cm2. Peak pressure gradient 48 mmHg and mean pressure gradient is 25 mmHg. No aortic regurgitation is present. Mitral valve leaflets are calcified. Moderate mitral annular calcification. Mild mitral regurgitation. Mild tricuspid regurgitation. Estimated pulmonary artery pressure of 45 mmHg. There is no pericardial effusion. <ELECTRONICALLY SIGNED> By: Matthias Mancuos MD, FACC 07/27/191216 16 16 Matthias Mancuso MD, FACC /INF
[2019-07-27 17:00] VITALS: BP 106/61
--- NOTE | 2019-07-27 19:37 | NUR ---
ASSUMED CARE AT SHIFT CHANGE, ALERT AND ORIENTED X4. VSS AND AFEBRILE. PROGRESSING TOWARD GOALS. VARGAS CATH OUPUT REMAINS PINKISH. WILL CONTINNUE WITH POC.
[2019-07-27 19:50] VITALS: BP 109/79
[2019-07-27 22:02] LABS: URINE BILIRUBIN NEGATIVE (Negative); URINE BLOOD 2+ (Negative); URINE CLARITY CLEAR; URINE COLOR YELLOW; URINE GLUCOSE-RANDOM* NEGATIVE (Negative); URINE KETONES NEGATIVE (Negative); URINE LEUKOCYTES NEGATIVE (Negative); URINE NITRITE NEGATIVE (Negative); URINE PROTEIN (DIPSTICK) NEGATIVE (Negative)
[2019-07-27 22:19] LABS: BACTERIA 1-9 Few /HPF (None Seen); CASTS None Seen /LPF (None Seen); CRYSTALS None Seen /LPF (None Seen); MUCUS 0-3 Light strn/LPF (None Seen); SQUAMOUS 0-3 Few /LPF (0-3); URINE WBC 0-5 Rare /HPF (0-5)
[2019-07-28 04:20] VITALS: BP 92/52
--- NOTE | 2019-07-28 05:26 | NUR ---
ASSUME CARE 1900. DENIES PAIN. MODERATE ACTIVITY TOLERANCE. UP WITH WALKER AND STB ASSIST TO BSC. SOA NOTED WITH ACTIVITY. ADEQUATE REST NOTED. PT IN CHAIR ALL NIGHT WITH LEGS ELEVATED. ASSESSMENT CHARTED. PROGRESSING MODERATELY TO POC. PLAN IS AGRESSIVE DIURESIS/ MONITOR ELECTROLYTES/ MONITOR BLADDER FUNCTION AND BLOOD SUGAR. WILL CONTINUE TO MONITOR AND FOLLOW WIHT POC
[2019-07-28 05:48] LABS: CREATININE 1.4 mg/dL (0.7-1.3); POTASSIUM 4.4 mmol/L (3.5-5.1)
[2019-07-28 06:24] LABS: FOLIC ACID 22.8 ng/mL (8.6-58.9); TSH 4.615 uIU/mL (0.358-3.740)
[2019-07-28 08:05] VITALS: BP 106/48
--- NOTE | 2019-07-28 11:29 | NUR ---
ASSUMED CARE AT 0700, SHIFT ASSESSMENT DONE, MEDS GIVEN, VSS. DENIES PAIN, NAUSEA, VOMITING. FOELY IN PLACE, ON IV LASIX. WORKED WITH PHYSICAL AND OCCUAPTIOANAL THERAPHY. ON ROOM AIR, NSR ON TELE WITH BBB. WILL CONTINUE TO ASSESS AND ASSIST WITH ADLs NEEDED.
[2019-07-28 12:30] VITALS: BP 92/54
--- NOTE | 2019-07-28 12:58 | NUR ---
Case opened to follow and assess for dc planning needs. Supervisor [employer] visited with the pt at bedside. He is a&ox4 and lives in the [facility] apt[facility] at [facility] with his sign other. He has a rolator walker and a fancy new elec w/c for long distances. He has been getting outpt therapy onsite per [facility] and plans to resume this at ma. He denies need for HH or SNF and prefers to go home with resumption of his outpt therapy. His son can transport him. The liason from [place] vas here today to visit with him. He is willing to have [facility] only if wound care is needed. Continuing iv lasix to diurese him. Possible dc home in 1-2 days.
--- NOTE | 2019-07-28 13:53 | NUR ---
WOUND CONSULT; NO WOUNDS IDENTIFIED ONLY CELLULITIS, ERYTHEMA. MILDLY WARM TO TOUCH. HE WAS SEEN IN THE OUTPATIENT WOUND CLINIC TODAY. RECOMMENDATIONS; KERLIX,AND SECURE WITH JENNIFFER WRAPS FROM FOOT TO HEEL CHANGE PRN DISCUSSED WITH SHERLY
[2019-07-28 15:15] VITALS: BP 93/54
[2019-07-28 21:55] VITALS: BP 94/58
[2019-07-29 08:03] VITALS: BP 92/48
--- NOTE | 2019-07-29 08:16 | NUR ---
ASSUME CARE 1900. PT/VITALS STABLE. BP RUNS SOFT. PT DENIES ANY PAIN. DESATS AT TIMES ON ROOM AIR. SITTING IN CHAIR. ADEQUATE REST NOTED. TOLERATES ACTIVTIY WELL. UP WITH WALKER TO BATHROOM. PLAN IS TO CONTINUE TO DIURESE PT AND MONITOR ELECTROLYTES. WILL CONTINUE TO MONITOR AND FOLLOW WITH POC
[2019-07-29 10:15] LABS: CALCIUM 9.2 mg/dL (8.5-10.1); CREATININE 1.5 mg/dL (0.7-1.3); POTASSIUM 3.5 mmol/L (3.5-5.1)
[2019-07-29 11:48] VITALS: BP 105/53
[2019-07-29 16:20] VITALS: BP 98/52
--- NOTE | 2019-07-29 19:38 | NUR ---
ASSUMED CARE AT SHIFT CHANGE, ALERT AND ORIENTED X4. BP SOFT, COREG HELD AND DR SILVA NOTIFIED. PATIENT SPENT MOST OF THE DAY SITTING UP IN THE CHAIR. TAKES O2 OFF AND DESATS TO 84-87%, PATIENT ADVICED NOT TO TAKE O2 OFF AND HE VERBALIZED UNDERSTANDING. PROGRSSEING TOWARD GOALS SLOWLY AND WILL CONTINUE WITH POC.
[2019-07-29 20:05] VITALS: BP 95/45
[2019-07-30 05:39] LABS: HEMATOCRIT 38.5 % (42.0-52.0); HEMOGLOBIN 13.3 gm/dL (14.0-18.0); MCH 39.1 pg (26.0-34.0); MCHC 34.4 g/dL (28.0-37.0); MCV 113.5 fL (80.0-100.0); RBC 3.4 mil/uL (4.50-6.00); WBC 3.1 thou/uL (4.0-11.0)
[2019-07-30 05:46] VITALS: BP 97/58
[2019-07-30 05:47] LABS: CALCIUM 9.1 mg/dL (8.5-10.1); CREATININE 1.6 mg/dL (0.7-1.3); POTASSIUM 4.1 mmol/L (3.5-5.1)
--- NOTE | 2019-07-30 06:07 | NUR ---
ASSUMED PT CARE AT 1900 WITH NO SIGN OF DISTRESS NOTED. PT IS ALERT AND ORIENTED. PT IS SITTING IN CHAIR. FALL PRECAUTION IN PLACE. PT IS ON OXYGEN. ASSESSMENT COMPLETED AND CHARTED. SCHEDULED MEDS ADMINISTED TO PT. PT TOLERATED PO INTAKE. PT IS STABLE THROUGHOUT THE NIGHT. DENIES ANY FURTHER NEEDS AT THIS TIME.
[2019-07-30 08:37] VITALS: BP 95/58
[2019-07-30 11:35] VITALS: BP 103/82
[2019-07-30 11:45] VITALS: BP 103/82
[2019-07-30 15:58] VITALS: BP 93/45
--- NOTE | 2019-07-30 17:14 | NUR ---
ASSUMED CARE AT 0730, ALERT AND ORIENTED X4. DENIES ANY DISCOMFORT, AFEBRILE, SR 1AVB, BBB. REMAINS ON LASIX 80 MG IV BID. PROGRESSING TOWARD GOALS AND WILL CONTINUE WITH POC.
[2019-07-30 19:03] VITALS: BP 103/53
[2019-07-31 03:52] VITALS: BP 92/50
--- NOTE | 2019-07-31 05:15 | NUR ---
ASSUMED PT CARE AT 1900 WITH NO SIGN OF DISTRESS NOTED IN PT. PT IS ALERT AND ORIENTED. PT IS SITTING IN CHAIR. ASSESSMENT COMPLETED AND DOCUMENTED. PT IS STABLE ON HEART MONITOR. FALL PRECAUTION IN PLACE. SCHEDULED MEDS ADMINISTERED TO PT. SAM STILL INP PLACE. DENIES ANY FURTHER NEEDS AT THIS TIME, CONTIUE TO MONITOR.
[2019-07-31 10:32] LABS: CALCIUM 9.1 mg/dL (8.5-10.1); CREATININE 1.4 mg/dL (0.7-1.3); POTASSIUM 4.3 mmol/L (3.5-5.1)
[2019-07-31] MEDS ORDERED: ASPIR 8181 MG PO (11:48)
[2019-07-31] MEDS ORDERED: TORSEMIDE20 MG PO (11:49)
[2019-07-31 12:38] VITALS: BP 98/61
[2019-07-31 13:58] VITALS: BP 98/61
== END 2019-07-31 15:28 | disposition home or self-care (01) | DRG 291 ==
LOC: 2N 17:47
PROVIDERS: Internal Medicine; Nurse Practitioner Family; ADMIT Hospitalist
DX: I13.0 Hypertensive heart and chronic kidney disease with heart failure and stage 1 through stage 4 chronic kidney disease, or unspecified chronic kidney disease (principal); I50.23 Acute on chronic systolic (congestive) heart failure; I25.5 Ischemic cardiomyopathy; N18.9 Chronic kidney disease, unspecified; I35.0 Nonrheumatic aortic (valve) stenosis; I48.0 Paroxysmal atrial fibrillation; E78.5 Hyperlipidemia, unspecified; E11.22 Type 2 diabetes mellitus with diabetic chronic kidney disease; N40.0 Benign prostatic hyperplasia without lower urinary tract symptoms; D53.9 Nutritional anemia, unspecified; E03.9 Hypothyroidism, unspecified; I25.10 Atherosclerotic heart disease of native coronary artery without angina pectoris; I25.2 Old myocardial infarction; Z95.5 Presence of coronary angioplasty implant and graft; Z95.810 Presence of automatic (implantable) cardiac defibrillator; Z79.02 Long term (current) use of antithrombotics/antiplatelets; Z79.899 Other long term (current) drug therapy; Z79.82 Long term (current) use of aspirin; Z82.3 Family history of stroke; Z82.49 Family history of ischemic heart disease and other diseases of the circulatory system
CPT/HCPCS: 10081

== ENCOUNTER → 2019-08-09 | Outpatient (CLI) | payer OTHER, MEDICARE ==
[~2019-08-09] MED LIST changes: +ASPIR 8181 MG PO
== END ==
LOC: HYPER 06:54
DX: I89.0 Lymphedema, not elsewhere classified (principal); I87.323 Chronic venous hypertension (idiopathic) with inflammation of bilateral lower extremity; I50.22 Chronic systolic (congestive) heart failure; I25.5 Ischemic cardiomyopathy; I48.91 Unspecified atrial fibrillation; I48.0 Paroxysmal atrial fibrillation; E11.40 Type 2 diabetes mellitus with diabetic neuropathy, unspecified; I25.10 Atherosclerotic heart disease of native coronary artery without angina pectoris; E66.9 Obesity, unspecified; M19.90 Unspecified osteoarthritis, unspecified site; R60.1 Generalized edema; Z95.810 Presence of automatic (implantable) cardiac defibrillator; Z68.38 Body mass index [BMI] 38.0-38.9, adult

== ENCOUNTER 2019-08-15 11:44 | Emergency (ER) | payer OTHER, MEDICARE ==
[~2019-08-15] VITALS: Ht 182.9 cm; Wt 127.0 kg
[2019-08-15 12:23] LABS: HEMATOCRIT 33.3 % (42.0-52.0); MCH 38.4 pg (26.0-34.0); MCV 116.5 fL (80.0-100.0); PLATELET COUNT 263 thou/uL (150-400); RBC 2.86 mil/uL (4.50-6.00); RDW 25.4 % (10.5-14.5); WBC 4.1 thou/uL (4.0-11.0)
[2019-08-15 12:30] LABS: CALCIUM 8.6 mg/dL (8.5-10.1); CREATININE 1.4 mg/dL (0.7-1.3); POTASSIUM 4.1 mmol/L (3.5-5.1)
[2019-08-15 12:36] LABS: URINE BILIRUBIN NEGATIVE (Negative); URINE BLOOD NEGATIVE (Negative); URINE CLARITY CLEAR; URINE COLOR YELLOW; URINE GLUCOSE-RANDOM* NEGATIVE (Negative); URINE KETONES NEGATIVE (Negative); URINE LEUKOCYTES-REFLEX TRACE (Negative); URINE NITRITE-REFLEX NEGATIVE (Negative); URINE PROTEIN (DIPSTICK) NEGATIVE (Negative)
[2019-08-15 12:40] LABS: ALBUMIN 2.7 g/dL (3.4-5.0); TOTAL BILIRUBIN 0.8 mg/dL (<0.1-1.0); TOTAL PROTEIN 6.9 g/dL (6.4-8.2); TROPONIN-I 0.1 ng/mL (<0.06)
[2019-08-15 12:54] LABS: ATYPICAL LYMPHS 3 %
[2019-08-15 12:56] LABS: ANISOCYTOSIS 3+; MACROCYTES 2+
[2019-08-15 12:57] LABS: POIKILOCYTOSIS SLIGHT
[2019-08-15 13:24] VITALS: BP 104/63
--- NOTE | 2019-08-15 14:18 | EKG ---
[address] [address] ELECTROCARDIOGRAM REPORT Name: Demetrice CONTRERAS Room #: DEP [facility]#: [id number] ������������������ Admission: 08/15/19 ������������������ Attend Phys: Discharge: 08/15/19 ������������������ Date of : 33 Report #: [id number] ����������������������������������������������������������������� [id number] THIS REPORT FOR: //name// [facility] ED Test Date: 2019-08-15 Test Time: 12:04:52 Pat Name: Demetrice CONTRERAS Department: Room: Gender: Digital Computer Operator: VICTOR M : 1935 Requested By: Samantha Calhoun Order Number: [id number] MD: Edmar Pandya Measurements Intervals [place] Rate: 79 P: 8 ME: 246 QRS: -79 QRSD: 172 T: 83 QT: 454 QTc: 521 Interpretive Statements Sinus rhythm Prolonged ME interval RBBB and LAFB Artifact in lead(s) I,III,aVR,aVL Compared to ECG 07/26/2019 18:50:19 Left anterior fascicular block now present Myocardial infarct finding no longer present Electronically Signed On 08-15-2019 14:18:19 CDT by Edmar Pandya [email or web address] ��������������������������������������������� <ELECTRONICALLY SIGNED> ���������������������������������������� By: Edmar Pandya MD ��������������������������������������������� 08/15/19 1418 1204 1204 Edmar Pandya MD /EPI
== END 2019-08-15 14:14 | disposition home or self-care (01) ==
LOC: ER 11:44
PROVIDERS: Nurse Practitioner Family
DX: R33.9 Retention of urine, unspecified (principal); E78.5 Hyperlipidemia, unspecified; I42.9 Cardiomyopathy, unspecified; I48.0 Paroxysmal atrial fibrillation; I50.22 Chronic systolic (congestive) heart failure; Z95.5 Presence of coronary angioplasty implant and graft

== ENCOUNTER 2019-08-29 16:14 | Inpatient (IN) | payer OTHER, MEDICARE ==
[~2019-08-29] VITALS: Ht 182.9 cm; Wt 128.7 kg
[2019-08-29 16:16] VITALS: BP 110/70
[2019-08-29 16:57] LABS: HEMATOCRIT 35.3 % (42.0-52.0); HEMOGLOBIN 11.6 gm/dL (14.0-18.0); MCH 38.8 pg (26.0-34.0); MCV 117.6 fL (80.0-100.0); PLATELET COUNT 204 thou/uL (150-400); WBC 3.4 thou/uL (4.0-11.0)
[2019-08-29 17:03] LABS: CALCIUM 8.5 mg/dL (8.5-10.1); CREATININE 1.4 mg/dL (0.7-1.3); POTASSIUM 4.1 mmol/L (3.5-5.1)
[2019-08-29 17:11] LABS: BE(vivo) 3.9 mmol/L (-2 to +3); HCO3 28.5 mmol/L (22.0-26.0); PCO2 42.7 mmHg (35.0-45.0); PO2 57.8 mmHg (80.0-100.0); pH 7.442 (7.360-7.450)
[2019-08-29 17:11] LABS: URINE BILIRUBIN NEGATIVE (Negative); URINE BLOOD 3+ (Negative); URINE CLARITY CLOUDY; URINE COLOR YELLOW; URINE GLUCOSE-RANDOM* NEGATIVE (Negative); URINE KETONES NEGATIVE (Negative); URINE NITRITE-REFLEX NEGATIVE (Negative); URINE PROTEIN (DIPSTICK) NEGATIVE (Negative)
[2019-08-29 17:12] LABS: TROPONIN-I 0.09 ng/mL (<0.06)
[2019-08-29 17:13] LABS: URINE LEUKOCYTES-REFLEX 3+ (Negative)
[2019-08-29 17:23] LABS: BACTERIA-REFLEX >30 Many /HPF (None Seen); CASTS None Seen /LPF (None Seen); CRYSTALS None Seen /LPF (None Seen); SQUAMOUS None Seen /LPF (0-3); URINE RBC >20 Many /HPF (0-2); URINE WBC-REFLEX 6-15 Few /HPF (0-5)
[2019-08-29] MEDS ORDERED: PROSCAR 5MG TABL5 MG PO (17:29)
[2019-08-29] MEDS ORDERED: KEFLEX500 M1 PO (17:30)
[2019-08-29 17:31] LABS: ATYPICAL LYMPHS 4 %; NUCLEATED RBCS 6 /100WBC
[2019-08-29 17:32] LABS: ANISOCYTOSIS 2+; MACROCYTES 2+
[2019-08-29 18:09] VITALS: BP 110/70
[2019-08-29 19:13] LABS: ALBUMIN 2.9 g/dL (3.4-5.0); CALCIUM 8.2 mg/dL (8.5-10.1); CREATININE 1.4 mg/dL (0.7-1.3); MAGNESIUM 2.2 mg/dL (1.8-2.4); PHOSPHORUS 3.4 mg/dL (2.5-4.9); POTASSIUM 4.4 mmol/L (3.5-5.1)
[2019-08-29 19:40] VITALS: BP 110/65
[2019-08-29 23:40] VITALS: BP 91/54
[2019-08-30 04:45] VITALS: BP 99/57
[2019-08-30 05:31] LABS: HEMOGLOBIN 11.2 gm/dL (14.0-18.0); RBC 2.86 mil/uL (4.50-6.00); WBC 2.8 thou/uL (4.0-11.0)
[2019-08-30 05:33] LABS: HEMATOCRIT 33.9 % (42.0-52.0); MCH 39.1 pg (26.0-34.0); MCV 118.3 fL (80.0-100.0); RDW 25.8 % (10.5-14.5)
[2019-08-30 05:49] LABS: CREATININE 1.3 mg/dL (0.7-1.3); PHOSPHORUS 3.9 mg/dL (2.5-4.9); POTASSIUM 4.5 mmol/L (3.5-5.1)
[2019-08-30 07:30] VITALS: BP 103/55
--- NOTE | 2019-08-30 09:10 | NUR ---
ASSUMED CARE OF PT FOR DAY SHIFT. VERY VERBAL ABOUT HOW HE LIKES HIS CARES. STATES HE GETS BORED SO GETS IN TROUBLE. VERY KNOWLEDGEABLE ABOUT HIS MEDS/CARES. SEE SEPARATE INTERVENTIONS FOR ASSESSMENTS, HAS SKIN ISSUES BUE, BRUISING, BLE SWELLING, PRIOR RN WRAPPED FOR COMPRESSION. PT USES CALL LIGHT FOR NEEDS, IS NOT IMPULSIVE, USES RO[facility] FOR AMBULATION. ALARM SET. ENCOURAGED HIM TO CALL FOR ANY NEEDS
[2019-08-30 11:52] VITALS: BP 108/70
[2019-08-30 16:06] VITALS: BP 91/50
--- NOTE | 2019-08-30 16:51 | NUR ---
Met with patient. [facility]. Patient has rolator walker and motorized wc at home. Patient does not have home oxygen but currently on oxygen here. Patients PCP Dr Cabrera. Anticipate dc home possible HH. Has used [facility] in the past.
[2019-08-30 19:22] VITALS: BP 101/58
[2019-08-31 03:27] VITALS: BP 94/55
[2019-08-31 08:00] VITALS: BP 102/42
[2019-08-31 08:36] LABS: HEMATOCRIT 33.9 % (42.0-52.0); HEMOGLOBIN 10.8 gm/dL (14.0-18.0); MCH 38.1 pg (26.0-34.0); MCV 119.1 fL (80.0-100.0); RBC 2.84 mil/uL (4.50-6.00); RDW 26.6 % (10.5-14.5)
[2019-08-31 08:37] LABS: WBC 2.8 thou/uL (4.0-11.0)
[2019-08-31 08:50] LABS: ALBUMIN 2.6 g/dL (3.4-5.0); CALCIUM 8.2 mg/dL (8.5-10.1); CREATININE 1.1 mg/dL (0.7-1.3); MAGNESIUM 2.2 mg/dL (1.8-2.4); POTASSIUM 4.2 mmol/L (3.5-5.1)
--- NOTE | 2019-08-31 12:44 | EKG ---
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 Right bundle branch block Anterolateral infarct, recent Excessive baseline wander in lead(s) V2 Compared to ECG 08/15/2019 12:04:52 Electronically Signed On 08-31-2019 12:43:52 CDT by Edmar Pandya [email or web address] <ELECTRONICALLY SIGNED> By: Edmar Pandya MD 08/31/19 1243 1621 1621 Edmar Pandya MD /EPI
--- NOTE | 2019-08-31 13:43 | NUR ---
ASSUMED CARE OF PT AT 0700 THIS SHIFT. PT HAS BEEN COOPERATIVE, HAS DENIED ANY PAIN THIS SHIFT. PT WANTS BETTER INSULIN MANAGEMENT, DR ZHENG IS AWARE, STATED HE WILL PUT IN NEW ORDERS FOR PT. ASSESSMENTS ARE DOCUMENTED, PT IS CURRENTLY RESTING COMFORTABLY IN ROOM. PT HAS HAD VISISTORS THIS SHIFT, EDUCATION WAS PROVIDED. PLAN OF CARE IS TO CONTINUE TO MONITOR PT CLOSELY AT THIS TIME.
--- NOTE | 2019-08-31 14:53 | NUR ---
Therapy evals in progress. Twyla douglas from [facility] by this am to visit with the pt. Their SNF liason Adry aware of pt should he need snf. Will have the dc raw material planner fax referral should he not be able to return directly to his apt with hh. Pt still on 3liters of o2. DC timeframe is uncertain. Will follow.
[2019-08-31 16:00] VITALS: BP 93/60
--- NOTE | 2019-08-31 16:22 | NUR ---
FAXED REFERRAL TO [facility] RECEIVED CONFIRMATION SPOKE WITH KV[facility] IN ADM SHE WILL REVIEW. DP TO FOLLOW.
--- NOTE | 2019-08-31 18:02 | NUR ---
ASSUMED CARE AT 1300, SHIFT ASSESMENT DONE, MEDS GIVEN, VSS. DENIES PAIN, NAUSEA, VOMITING. NSR ON TELE. HAD A BM TODAY, FOELY IN PLACE, PRODUCING URINE. TOOK A SHOWER TODAY. REPORT GIVEN TO CURTIS.
[2019-08-31 19:37] VITALS: BP 100/52
--- NOTE | 2019-09-01 05:37 | NUR ---
ASSUMED PT CARE AT 1900 WITH NO SIGN OF DISTRESS NOTED. PT IS ALERT AND ORIENTED. ASSESSMENT COMPLETED. FALL PRECAUTION IN PLACED. PT IS SITTING IN CHAIR. NO SIGN OF DISTRESS NOTED, SCHEDULED MEDS ADMINISTERED TO PT. PT IS STABLE THROUGHOUT THE NIGHT. DENIES ANY FURTHER NEEDS AT THIS TIME.
[2019-09-01 06:00] LABS: HEMATOCRIT 33.3 % (42.0-52.0); MCH 39.2 pg (26.0-34.0); MCHC 33.2 g/dL (28.0-37.0); MCV 118.2 fL (80.0-100.0); RBC 2.82 mil/uL (4.50-6.00); RDW 25.9 % (10.5-14.5); WBC 3.9 thou/uL (4.0-11.0)
[2019-09-01 06:14] LABS: CALCIUM 8.3 mg/dL (8.5-10.1); CREATININE 1.2 mg/dL (0.7-1.3); MAGNESIUM 2.2 mg/dL (1.8-2.4); PHOSPHORUS 2.3 mg/dL (2.5-4.9); POTASSIUM 3.9 mmol/L (3.5-5.1)
[2019-09-01 06:15] LABS: ALBUMIN 2.6 g/dL (3.4-5.0); CALCIUM 8.2 mg/dL (8.5-10.1); CREATININE 1.2 mg/dL (0.7-1.3); PHOSPHORUS 2.3 mg/dL (2.5-4.9); POTASSIUM 3.9 mmol/L (3.5-5.1)
[2019-09-01 08:00] VITALS: BP 105/67
[2019-09-01 12:11] VITALS: BP 98/60
--- NOTE | 2019-09-01 13:51 | NUR ---
No weekend dc anticipated. Pt on lasix gtt. Pt wanting continued aggressive tx despite enstage illness per the attending. [facility] liason her again today to visit pt and provide emotional support. Their snf liason was updated. They will need updates again on Wednesday should he need snf there before going back to his apt. Possible home o2 at dc. [facility] can provide hh as he has had them in the past. Will follow.
[2019-09-01 16:00] VITALS: BP 92/69
--- NOTE | 2019-09-01 20:30 | NUR ---
SEE ASSESSMENTS FOR DETAILS IN PT'S CARE. LASIX GTT INFUSING WITH 1,100CC FLUID OFF. PT CONTINUES TO BE UPSET, ANGRY, FRUSTRATED WITH HIS PHYSICAL CONDITION. PT VENTED HIS NUMEROUS CONCERNS TO BOTH NURSES DURING BEDSIDE SHIFT REPORT. LISTENED, PROVIDED TEACHING APPROPIATE. HE VERBALIZED NUMEROUS SITUATIONS WHILE RECEIVING HEALTH CARE IN GENERAL THAT HAVE CONTRIBUTED TO HIS CURRENT PHYSICAL STATUS.
[2019-09-01 20:34] VITALS: BP 11/67
--- NOTE | 2019-09-02 01:06 | NUR ---
ASSESSMENTS CHARTED. MEDS CHARTED GIVEN. PATIENT SITTING IN RECLINER DURING SHIFT. GOT PATIENT UP TO BSC WITH ASSIST X 2. PATIENT IS VERY CONFUSSED ABOUT WHAT HIS DIFFERENT DOCTORS ARE TELLING HIM ABOUT HIS CONDITION. SPENT QUITE A BIT OF TIME EDUCATING PATIENT THE DIFFERENCE BETWEEN NEPHROLOGY AND UROLOGY. PATIENT ATE ICE CHIPS SINCE HE ONLY HAD 1O0 ML OF FLUID LEFT AVAILABLE.
[2019-09-02 05:00] VITALS: BP 109/62
[2019-09-02 06:07] LABS: ALBUMIN 2.5 g/dL (3.4-5.0); CALCIUM 7.6 mg/dL (8.5-10.1); CREATININE 1.1 mg/dL (0.7-1.3); PHOSPHORUS 2.2 mg/dL (2.5-4.9); POTASSIUM 3.3 mmol/L (3.5-5.1)
[2019-09-02 07:30] VITALS: BP 93/42
[2019-09-02 11:58] VITALS: BP 95/54
[2019-09-02 17:05] VITALS: BP 114/55
--- NOTE | 2019-09-02 19:46 | NUR ---
PATIENT PLEASANT, ALERT AND ORIENTED X4, NO COMPLAINTS OF PAIN. ON ROOM AIR. TOLERATING RENAL DIET AND FLUID RESTRICTION WELL. UP WITH X2 ASSISTANCE, PATIENT IN CHAIR THROUGHOUT THE SHIFT. BLOOD SUGAR MONITORED. ON GTT. PATIENT SPOKE WITH DR. FERNANDEZ AND MARCE ABOUT FURTHER TREATMENT WITH HOSPICE, POSSIBLE ON WEDNESDAY. PATIENT AND SONS VERBALIZED UNDERSTANDING. NO SIGNS OF ACUTE DISTRESS NOTED AT THIS TIME. WILL CONTINUE TO MONITOR.
[2019-09-02 20:05] VITALS: BP 122/75
--- NOTE | 2019-09-03 01:04 | NUR ---
ASSESSMENTS CHARTED, MEDS GIVEN CHARTED. PATIENT SITTING IN RECLINER AT START OF SHIFT, DENIES PAIN. PATIENTS URINE SAMPLE IS POSITIVE FOR E.CHOLI. DISCUSSED ANTIBIOTICS HE IS RECEIVING. PER DOCTOR NOTES. PATIENT, TWO SONS AND DOCTOR DISCUSSED TREATMENT OPTIONS AVAILABLE AND PATIENT HAS CHOOSEN TO GO HOME WITH HOSPICE CARE HE DOES NOT WANT TO CONTINUE COMING BACK TO BE DIURESED. CHRONIC CATHETER STILL IN PLACE FROM PRIOR TO ADMISSION. PLAN OF CARE IS TO CONTINUE LASIX DRIP UNTIL DAYTIME THEN CHANGE TO PO MED.
[2019-09-03 05:13] VITALS: BP 97/58
[2019-09-03 05:40] LABS: ALBUMIN 2.4 g/dL (3.4-5.0); CALCIUM 7.5 mg/dL (8.5-10.1); CREATININE 1.2 mg/dL (0.7-1.3); PHOSPHORUS 2.4 mg/dL (2.5-4.9); POTASSIUM 3.4 mmol/L (3.5-5.1)
[2019-09-03 11:24] VITALS: BP 104/54
[2019-09-03 16:38] VITALS: BP 139/94
--- NOTE | 2019-09-03 17:11 | NUR ---
ASSUMED CARE AT SHIFT CHANGE, ALERT AND ORIENTED X4 AND FORGETFUL. DENIES ANY DISCOMFORT, AND VSS. REFUSED INSULIN DOSE AT LUNCH. PATIENT STAYS IN THE CHAIR ALL DAY AND REFUSES TO GET UP. SR/BBB/1AVB ON THR MONITOR. AND WILL CONTINUE WITH POC.
[2019-09-03 19:08] VITALS: BP 104/53
[2019-09-04 03:30] VITALS: BP 99/53
[2019-09-04 05:40] LABS: ALBUMIN 2.5 g/dL (3.4-5.0); CALCIUM 7.8 mg/dL (8.5-10.1); CREATININE 1.1 mg/dL (0.7-1.3); PHOSPHORUS 2.1 mg/dL (2.5-4.9); POTASSIUM 3.5 mmol/L (3.5-5.1)
[2019-09-04 08:00] VITALS: BP 103/71
--- NOTE | 2019-09-04 08:50 | NUR ---
ASSESSMENTS CHARTED. MEDS GIVEN CHARTED. PATIENT HAD MANY QUESTIONS ABOUT HOSPICE AND PALLIATIVE CARE WHICH WE DISCUSSED. HE IS STILL ON THE LASIX DRIP, STILL DIURESING WELL. SAT IN RECLINER DURING SHIFT. RECEIVING ANTIBIOTICS FOR E.COLI IN URINE. DOCTORS, ASAD AND HIS 2 CHILDREN HAVE DISCUSSED GOING HOME TODAY ON HOSPICE CARE.
[2019-09-04 12:00] VITALS: BP 100/55
--- NOTE | 2019-09-04 13:43 | NUR ---
sp with patient regarding dc home. Discussed post acute skilled rehab at [facility] and patient does not want to go to skilled. He reports he is interested in pallative care at home. he reports overweekend he sp with staff regarding pallative care. He no longer wants to return to hospital for CHF he wants to be managed at home in the best way he can be managed. He has no preference for pallative care program. reviewed brochures and options. [facility] Pallative program with 2 week wait list. Sp with [facility] as he has rec HH care with them in past. They do not have pallative program but recommend [facility]. Patient agreeable to meet with [facility], referral to [facility] to meet with patient today. He cont on lasix drip but hopefull to dc today.
[2019-09-04] MEDS ORDERED: IPRAT-ALBUT 0.5-3 ML INH (15:35)
[2019-09-04] MEDS ORDERED: PACERONE 200 M200 M1 PO (15:35)
[2019-09-04] MEDS ORDERED: LASIX 40 MG TAB40 M2 PO (15:44)
[2019-09-04] MEDS ORDERED: DEMADEX20 MG PO (15:56)
[2019-09-04 16:22] VITALS: BP 100/55
--- NOTE | 2019-09-04 16:30 | NUR ---
ASSESSMENT CHARTED - MEDS PER JAN - LASIX DRIP ORDERED - PATIENT GIVEN METALOZONE ORDERED THIS AM. JADEN DIET AND FLUIDS. ACCUCHECKS CHARTED AND COVERED PER DOCUMENTATION ON JAN - PT UP IN THE CHAIR FOR TH SHIFT - SEEN BY PHYS AND OCC THERPAY. PT SEEN BY PALLATIVE CARE THIS AFTERNOON. PT IS TO BE DISCHARGTED THIS AFTERNOON. HOME WITH PALATIVE CARE AND HOME HEALTH. NO CO'S AT THE PRESENT TIME.
[2019-09-04 16:35] VITALS: BP 100/55
--- NOTE | 2019-09-04 16:35 | NUR ---
FAXED REFERRAL TO [facility] SPOKE WITH CHAY IN INTAKE SHE RECEIVED REFERRAL AND CAN ACCEPT PT AND WILL START VISITS ON WEDNESDAY AM AND WILL NOTIFY PT TIME OF VISITS.
--- NOTE | 2019-09-04 17:03 | NUR ---
Ifeanyi/Lianne accepting of patient however cannot see patient in am. Updated patient who is in agreement of care.
[2019-09-04 17:13] VITALS: BP 100/55
--- NOTE | 2019-09-04 18:22 | NUR ---
PT HOME THIS EVEINING. INSTRUXCTION RE HOME MEDS/ CARE AND FOLLOW UP GIVEN TO PATIENT - STATED UNDERSTANDING ON IONSTRUCTION GIVEN. HOME HELATH AND PALATIVE CARE ARRANGED PER SWS. PT MONITOR AND IV REMOVED PRIOR TO D/C. PT LEFT UNIT VIA WHEELCHAIR - HOME TO APPT AT [facility] - LEFT VIA CAR ACCOMAPNIED BY STAFF FROM [facility]. NO CO'S AT TIME OF D/C.
--- NOTE | 2019-09-06 09:17 | HC ---
[facility] [place] [address] CONSULTATION Name: Demetrice CONTRERAS JR Room #: 219-P [facility] IN ..#: [id number] Admission: 08/29/19 Attend Phys: Yolanda Saucedo MD Discharge: 09/04/19 Date of : 31 Report #: [id number] THIS REPORT FOR: //name// CC: Link Saucedo DATE OF SERVICE: 08/30/2019 REASON FOR CONSULTATION: Chronic kidney disease. REASON FOR PRESENTATION: Shortness of breath. HISTORY OF PRESENT ILLNESS: An 84-year-old with extensive past medical history including severe aortic stenosis, diabetes mellitus, coronary artery disease, terminal heart failure with an ejection fraction of around 20%. He is known to have a baseline creatinine of around 1.5. He presented with shortness of breath, weakness and was admitted for further evaluation. He has some urological issues and actually was evaluated by the urologist who advised him to continue with the Garcia catheter. Because of his shortness of breath, he had increased his diuretic dose. This has not resulted in significant improvement of his shortness of breath and he continued to have lower extremity swelling, weight gain and was admitted for further evaluation. PAST MEDICAL HISTORY: 1. Severe aortic stenosis. 2. Cardiomyopathy with an ejection fraction of 20%. 3. Atrial fibrillation. 4. Lymphedema. 5. Urinary retention. 6. Diabetes mellitus. 7. Stage 3 chronic kidney disease. MEDICATIONS: 1. Plavix. 2. Spironolactone. 3. Torsemide. 4. Insulin. 5. Amiodarone. 6. Flomax. SOCIAL HISTORY: He lives in an assisted living facility. No drug or alcohol abuse. 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 FAMILY HISTORY: No known chronic kidney disease. REVIEW OF SYSTEMS: [facility] [address] [place] [address] CONSULTATION Name: Demetrice CONTRERAS JR Room #: 219-P [facility] IN [facility]#: [id number] Admission: 08/29/19 Attend Phys: Yolanda Saucedo MD Discharge: 09/04/19 Date of : 33 Report #: [id number] GENERAL: Significant for weakness. CARDIOVASCULAR: No chest pain, but significant for shortness of breath and lower extremity swelling. PULMONARY: No cough, but significant for shortness of breath. GASTROINTESTINAL: No nausea or vomiting. GENITOURINARY: Known to have urinary retention. MUSCULOSKELETAL: Occasional myalgias and back pain: PHYSICAL EXAMINATION: GENERAL: The patient was alert, oriented, in no apparent distress. VITAL SIGNS: Blood pressure is marginal at 99/57. Temperature 36.4. HEAD AND NECK: Significant for jugular venous distention. CHEST: Decreased air entry bilaterally. CARDIOVASCULAR: No rub. ABDOMEN: Soft with abdominal wall edema. LOWER EXTREMITIES: +4 edema wraps are applied bilaterally. LABORATORY DATA: Reviewed. Hemoglobin is 11.2. Sodium is 140. BUN is 27, creatinine is 1.3. IMPRESSION AND PLAN: 1. Chronic kidney disease with stable creatinine. 2. Fluid overload. 3. Terminal heart failure. 4. Status post automatic implantable cardioverter-defibrillator. 5. Atrial fibrillation. 6. Coronary artery disease. 7. From the renal perspective, the patient seems to be at his baseline. As for now, I will try to augment his diuresis by increasing the dose of his furosemide to twice a day. I mean to 40 mg twice a day. It is expected that we will see a transient rise in his creatinine. 8. Continue to work on augmenting his heart condition. However, with his severe aortic stenosis, cardiomyopathy, this seems to be a poor prognosis. 9. Salt restriction. 10. Local measures for his edema. 11. We will decide about adding Aldactone down the road. 12. Blood pressure is marginal and I doubt that he will be able to tolerate Entresto, an angiotensin receptor fabio or an angiotensin converting enzyme inhibitor. 13. Sepsis workup is initiated. 14. Continue to watch urine output. 15. We will continue to follow. <ELECTRONICALLY SIGNED> By: En Youssef MD 09/06/19 0917 [id number] [id number] En Youssef MD /nt
--- NOTE | 2019-09-26 10:12 | H ---
[facility] [place] [address] HISTORY AND PHYSICAL Name: Demetrice CONTRERAS JR Room #: 219-P [facility] IN ..#: [id number] Admission: 08/29/19 Attend Phys: Yolanda Saucedo MD Discharge: 09/04/19 Date of : 33 Report #: [id number] THIS REPORT FOR: //name// CC: Link Saucedo DATE OF SERVICE: 08/29/2019 CHIEF COMPLAINT: 1. Progressively worsening shortness of breath with increased weight gain for the past 2 months. 2. Significant weakness with inability to do activities of daily living since yesterday. HISTORY OF PRESENT ILLNESS: The patient is a very pleasant 84-year-old gentleman who has history of congestive heart failure with ejection fraction 20% as per echocardiogram on 07/27/2019. The patient also has severe aortic stenosis besides having coronary artery disease and diabetes mellitus type 2. The patient informs me that he has increasing lower extremity edema, which is making him difficult to walk and also significant weight gain in the past 2 months despite of taking the water pill regularly. The patient had significant weakness and low blood pressure and therefore, all the blood pressure medications have been stopped by his early morning babysitter, Dr. Mancuso. The patient informs me that he has not had any fever, shaking chills or, night sweats; however, since yesterday, he had abrupt decline in his strength. The patient had acute urinary retention diagnosed here in the Emergency Room and an indwelling Garcia catheter was placed and that was done on 08/15/2019. The patient had a followup appointment with the urologist, Dr. Bills and he was advised to continue with the Garcia catheter. The patient informs me that he was to increase his diuretic torsemide to double the dose and despite of that he continues to have increased water retention. PRIMARY CARE PHYSICIAN: Dr. Link Cabrera. PRIMARY UROLOGIST: Dr. Bills. PRIMARY CHIEF OF FIELD OPERATIONS: Dr. Mancuso. REVIEW OF SYSTEMS: Negative for nausea, vomiting, diarrhea or constipation. Negative for fever, shaking chills or night sweats. Negative for fall or a syncopal episode or dizziness. Positive for extremely progressively worsening shortness of breath at rest as well as assist with walking, orthopnea with a baseline pillows of 1 pillow use and now he has been using 2+ pillows and still not comfortable in his recliner. Denies any chest pain or chest pressure. Denies any abdominal pain. Denies any hematuria. Denies any back pain, flank pain or colicky pain. [address] [address] HISTORY AND PHYSICAL Name: PEDROZACHARYDemetrice Room #: 219-P [facility] IN ..#: [id number] Admission: 08/29/19 Attend Phys: Yolanda Saucedo MD Discharge: 09/04/19 Date of : 33 Report #: [id number] PAST MEDICAL HISTORY: Significant for, 1. Orthostatic hypotension and syncopal episodes in the past. 2. Severe aortic stenosis. 3. Ischemic cardiomyopathy with ejection fraction of 20%. 4. Paroxysmal atrial fibrillation. 5. Hyperlipidemia. 6. Chronic lymphedema. 7. Urinary retention with indwelling Garcia catheter. 8. Diabetes mellitus type 2 with poor control. 9. Coronary artery disease with stents in 2014. 10. Chronic kidney disease, stage 3. ALLERGIES: The patient has no known drug allergies. HOME MEDICATIONS: 1. Flomax 0.4 mg daily. 2. Amiodarone 200 mg daily. 3. Plavix 75 mg daily. 4. Insulin as needed, Levemir 10 units at bedtime. 5. Spironolactone 25 mg daily. 6. Carvedilol 3.125 mg twice a day, which has been stopped by Dr. Mancuso. 7. Potassium chloride. 8. Torsemide 20 mg p.o. b.i.d. PERSONAL AND SOCIAL HISTORY: The patient lives at home alone and has a very supportive family. He has 2-3 sons are at bedside and the patient informs me that all three of them to make decisions in case he is unable to make decision. However, he informs me that he absolutely does not want to be on a ventilator. He is okay with BiPAP and he is okay with CPR. The patient is a lifetime nonsmoker and denies any heavy alcohol intake, occasional beer is all he remembers taking it in the past. FAMILY HISTORY: The patient's mother had accidental at a very young age. Father had GI issues, but no other serious illness and he is the only child and does not have any other family history. PAST SURGICAL HISTORY: The patient has had trauma to his right hand with a saw causing traumatic amputation and had surgical repair of his fingers. PHYSICAL EXAMINATION: VITAL SIGNS: Temperature 36.7, heart rate 83, respirations 22, blood pressure 110/70 and pulse oximetry 86% on room air, 94% on 2 liters of oxygen by nasal cannula. GENERAL: Alert and oriented to time, place and person, very pleasant 84-year-old gentleman who is hard of hearing, but has hearing aids in both ears [facility] [address] [place] [address] HISTORY AND PHYSICAL Name: Demetrice CONTRERAS JR Room #: 219-P [facility] IN [facility]#: [id number] Admission: 08/29/19 Attend Phys: Yolanda Saucedo MD Discharge: 09/04/19 Date of : 33 Report #: [id number] and is accompanied by his 2 sons at the bedside and the patient is mildly tachypneic. HEENT: Normocephalic, atraumatic. Pupils are equally round and reactive to light. Conjunctivae clear. Sclerae is nonicteric. Oropharynx is clear. Edentulous and mucous membranes moist. NECK: Supple. JVD noted and no lymphadenopathy present. HEART: S1, S2 regular with a 3/6 systolic ejection murmur present. LUNGS: Clear to auscultation bilaterally with bibasilar crackles present. Bilaterally symmetrical chest expansion noted. ABDOMEN: Soft, obese. Large abdomen with mild erythema of the abdominal wall noted with abdominal wall edema noted as well. Nontender abdominal exam with normal active bowel sounds present. EXTREMITIES: 4+ pitting edema with erythema extending on both shins of the tibia and in between the toes. The patient has athlete's feet and no skin breakdown noted. However, the patient has a significant compression marking from the Garcia elastic bag, which was relieved here in the Emergency Room. Garcia bag is full and needs to be changed. area no rash, just erythema of the abdominal wall noted, __ noted. NEUROLOGIC: Completely nonfocal. 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 LABORATORY DATA: The patient had a blood gas drawn at the time of admission with a pH 7.442, pCO2 of 42.7, pO2 57.8 and oxygen saturation 87.4 on room air when the patient presented to the ER and lactic acid was 1.29. Urinalysis with 3+ blood and 3+ leukocyte esterase and rbc's, greater than 20 WBCs 6-15 and bacteria greater than 30, squamous epithelial cells none. Hematology indicates WBC 3.4, hemoglobin 11.6, hematocrit 35.3, platelet count 204 and the differential is significant for 57% segmented neutrophils and 1% band neutrophils, absolute neutrophil count is 2000. Chemistries indicate sodium 140, potassium 4.1, chloride 102, bicarbonate 35, anion gap 3, BUN 29, creatinine 1.4, calculated GFR is 48, glucose 147, calcium 8.5, phosphorus 3.4, magnesium 2.2, troponin I 0.09 and beta natriuretic peptide is 15,927, albumin 2.9 and TSH 4.315. Urine culture and blood cultures have been drawn in the Emergency Room and sent. Chest x-ray indicates mild pulmonary venous congestion and borderline mild cardiomegaly. Electrocardiogram indicates accelerated junctional rhythm with right bundle branch block and a sinus rhythm no longer present. First degree AV block, no longer present and a recent anterolateral infarct finding noted. [address] [address] HISTORY AND PHYSICAL Name: Demetrice CONTRERAS JR Room #: 219-P [facility] IN ..#: [id number] Admission: 08/29/19 Attend Phys: Yolanda Saucedo MD Discharge: 09/04/19 Date of : 33 Report #: [id number] ASSESSMENT AND PLAN: 1. Systemic inflammatory response syndrome with urinary tract infection and cellulitis of both lower extremities and abdominal wall cellulitis, urinary retention with indwelling Garcia catheter for 2 weeks. 2. Ischemic cardiomyopathy with an acute congestive heart failure exacerbation. 3. Chronic kidney disease, stage 3. 4. Diabetes mellitus type 2. 5. Critical aortic stenosis. 6. Hypoxemia with respiratory distress secondary to pulmonary edema. 7. Obesity with body mass index of 38. 8. Failure to thrive with severe debility in past few days, worse. 9. The patient wishes to be full code with do not intubate and deep venous thrombosis prophylaxis, we will use heparin and for GI prophylaxis, will use Pepcid renal dose. 10. Hypotension. PLAN: The patient is being admitted to CCU. All the labs and x-rays and all the findings were discussed with the patient as well as his both sons at the bedside. Cardiology has been consulted. The patient has had an indwelling Garcia catheter and so I am going to put him on broad-spectrum coverage for gram-positive and gram-negative, vancomycin and Rocephin has been started to cover his cellulitis as well as UTI. 1. We will go ahead and have pharmacy consult for vancomycin monitoring. 2. The patient has critical aortic stenosis. We will avoid hypotension and we will hold all antihypertensives. 3. The patient has a mildly elevated TSH, so we will go ahead and check T4, T3 as well with tomorrow morning labs. 4. We will give stress dose of hydrocortisone because of the hypotension noted and if need arise, we will start Levophed and we will discuss the situation with Dr. Mancuso. 5. The patient has not responded to oral torsemide. We will go ahead and give IV furosemide once the blood pressure is improved. At the time of examination, the patient had blood pressure 96/76 and if the patient is quite tachypneic secondary to pulmonary edema, so we will go ahead and start BiPAP for help with the tachypnea. So the patient does not get tired with tachypnea 6. 6. Heparin for DVT prophylaxis has been written. 7. We will go ahead and consult Nephrology as the patient has stage 3 kidney disease as well as I have added random cortisol level to the blood drawn already as the patient has had syncopal episodes in the past as well and if the cortisol is low, then we will consult Endocrinology. 8. We will continue with indwelling Garcia catheter placed in the ER 2 weeks ago. 9. We will consult Infectious Disease if the cultures come back with resistant bacteria or if it is a complex UTI. 10. Full code with DNI order is in place and it was discussed with the patient and his both sons at the bedside and the patient is pretty clear about his [facility] [address] [place] [address] HISTORY AND PHYSICAL Name: Demetrice CONTRERAS Room #: 219-P [facility] [place] [facility].#: [id number] Admission: 08/29/19 Attend Phys: Yolanda Saucedo MD Discharge: 09/04/19 Date of : 33 Report #: [id number] wishes and does not want to be intubated at any cost. 11. Diabetes mellitus type 2. We will go ahead and start sliding scale insulin for his diabetes and we will use a moderate dose regime in the beginning and we will add hemoglobin A1c with tomorrow morning labs. 12. We will put for a sleeve to help with the lymphedema or compression bandage once the venous Doppler is negative on both lower extremities and if the patient does have a venous thromboembolism, then we will change the heparin to therapeutic dose instead of prophylactic dose. Plan of care was discussed with the patient as well as his family at the bedside. <ELECTRONICALLY SIGNED> By: Yolanda Saucedo MD 09/26/19 1012 [id number] Yolanda Saucedo MD /nt
== END 2019-09-04 18:23 | disposition home health service (06) | DRG 871 ==
LOC: ER 16:14 → EROBS 17:54 → 2N 17:54
PROVIDERS: Emergency Medicine; Hospitalist; Internal Medicine Nephrology; ADMIT Internal Medicine
DX: A41.9 Sepsis, unspecified organism (principal); I50.23 Acute on chronic systolic (congestive) heart failure; J96.21 Acute and chronic respiratory failure with hypoxia; L03.311 Cellulitis of abdominal wall; N17.9 Acute kidney failure, unspecified; N39.0 Urinary tract infection, site not specified; L03.116 Cellulitis of left lower limb; L03.115 Cellulitis of right lower limb; E46 Unspecified protein-calorie malnutrition; R65.10 Systemic inflammatory response syndrome (SIRS) of non-infectious origin without acute organ dysfunction; I25.10 Atherosclerotic heart disease of native coronary artery without angina pectoris; I35.0 Nonrheumatic aortic (valve) stenosis; I25.5 Ischemic cardiomyopathy; N18.3 Chronic kidney disease, stage 3 (moderate); I48.0 Paroxysmal atrial fibrillation; R62.7 Adult failure to thrive; I95.1 Orthostatic hypotension; D64.9 Anemia, unspecified; R33.9 Retention of urine, unspecified; E11.22 Type 2 diabetes mellitus with diabetic chronic kidney disease; E66.01 Morbid (severe) obesity due to excess calories; B96.20 Unspecified Escherichia coli [E. coli] as the cause of diseases classified elsewhere; E78.5 Hyperlipidemia, unspecified; I89.0 Lymphedema, not elsewhere classified; Z95.5 Presence of coronary angioplasty implant and graft; Z79.899 Other long term (current) drug therapy; Z79.4 Long term (current) use of insulin; Z89.021 Acquired absence of right finger(s); Z68.38 Body mass index [BMI] 38.0-38.9, adult; Z95.810 Presence of automatic (implantable) cardiac defibrillator; I25.2 Old myocardial infarction
CPT/HCPCS: 10081; 10194